=== PATIENT | male | born 1980 | race Caucasian/White ===

== ENCOUNTER 2017-05-07 15:04 | Emergency (ER) | payer MEDICAID | END 2017-05-07 17:01 | disposition home or self-care (01) | LOC: E/R 15:04 | DX: L73.9 Follicular disorder, unspecified (principal); H10.9 Unspecified conjunctivitis | CPT/HCPCS: 99284; Z7502 ==

== ENCOUNTER 2017-08-05 12:00 | Emergency (ER) | payer MEDICAID ==
[2017-08-05] MEDS: SOD CHLORIDE 0.9% 1,000 ML IV (18:17)
[2017-08-05 18:20] LABS: ADD MAN DIFF? NO
[2017-08-05 18:25] LABS: WHITE BLOOD COUNT 5.8 10^3/ul (4.8-10.8)
[2017-08-05 18:25] LABS: BASOPHIL # 0.1 10^3/ul (0.0-0.1); BASOPHILS % 2.3 % (0.0-2.0); EOSINOPHILS # 0.1 10^3/ul (0.0-0.5); HEMATOCRIT 40.3 % (42.0-52.0); HEMOGLOBIN 13.9 g/dl (14.0-18.0); LYMPHOCYTES # 1.5 10^3/ul (0.8-2.9); LYMPHOCYTES % 26.2 % (15.0-51.0); MEAN CORPUSCULAR HEMOGLOBIN 32.8 pg (29.0-33.0); MEAN CORPUSCULAR HGB CONC 34.5 g/dl (32.0-37.0); MEAN PLATELET VOLUME 10.1 fl (7.4-10.4); MONOCYTE # 0.9 10^3/ul (0.3-0.9); MONOCYTES % 15.8 % (0.0-11.0); NEUTROPHIL # 3.1 10^3/ul (1.6-7.5); NEUTROPHILS % 54.5 % (39.0-77.0); PLATELET COUNT 107 10^3/UL (140-415); RED BLOOD COUNT 4.24 10^6/ul (4.70-6.10); RED CELL DISTRIBUTION WIDTH 11.9 % (11.5-14.5)
[2017-08-05 18:52] LABS: ANION GAP 19 (8-16); BLOOD UREA NITROGEN 4 mg/dl (7-20); CALCIUM 9.5 mg/dl (8.4-10.2); CARBON DIOXIDE 32 mmol/L (21-31); CHLORIDE 102 mmol/L (97-110); CREATININE 0.54 mg/dl (0.61-1.24); GLUCOSE 129 mg/dl (70-220); POTASSIUM 3.8 mmol/L (3.5-5.1); SODIUM 149 mmol/L (135-144)
[2017-08-05 19:04] LABS: TROPONIN-I < 0.012 ng/ml (0.00-0.12)
== END 2017-08-05 20:33 | disposition home or self-care (01) ==
LOC: E/R 12:00
DX: G47.09 Other insomnia (principal)
CPT/HCPCS: 36415; 71045; 80048; 84484; 85025; 93005; 99285-25

== ENCOUNTER 2018-01-27 12:13 | Emergency (ER) | payer MEDICAID ==
[2018-01-27 13:17] LABS: ADD MAN DIFF? NO
[2018-01-27 13:19] LABS: BASOPHIL # 0.1 10^3/ul (0.0-0.1); EOSINOPHILS # 0.1 10^3/ul (0.0-0.5); EOSINOPHILS % 1.6 % (0.0-7.0); HEMATOCRIT 39.7 % (42.0-52.0); HEMOGLOBIN 13.4 g/dl (14.0-18.0); LYMPHOCYTES # 1.5 10^3/ul (0.8-2.9); LYMPHOCYTES % 21.4 % (15.0-51.0); MEAN CORPUSCULAR HEMOGLOBIN 33.4 pg (29.0-33.0); MEAN CORPUSCULAR HGB CONC 33.8 g/dl (32.0-37.0); MEAN PLATELET VOLUME 10.6 fl (7.4-10.4); MONOCYTE # 1.1 10^3/ul (0.3-0.9); MONOCYTES % 15.3 % (0.0-11.0); NEUTROPHIL # 4.2 10^3/ul (1.6-7.5); NEUTROPHILS % 59.4 % (39.0-77.0); PLATELET COUNT 100 10^3/UL (140-415); POSITIVE DIFF @See below; RED BLOOD COUNT 4.01 10^6/ul (4.70-6.10); RED CELL DISTRIBUTION WIDTH 11.9 % (11.5-14.5)
[2018-01-27 13:47] LABS: ALANINE AMINOTRANSFERASE 48 IU/L (13-69); ALBUMIN 4.3 g/dl (3.3-4.9); ALBUMIN/GLOBULIN RATIO 1.07; ALKALINE PHOSPHATASE 127 IU/L (42-121); ANION GAP 14 (8-16); ASPARTATE AMINO TRANSFERASE 110 IU/L (15-46); BILIRUBIN,INDIRECT 0.6 mg/dl (0-1.1); BILIRUBIN,TOTAL 0.6 mg/dl (0.2-1.3); BLOOD UREA NITROGEN 4 mg/dl (7-20); CALCIUM 9.1 mg/dl (8.4-10.2); CARBON DIOXIDE 28 mmol/L (21-31); CHLORIDE 105 mmol/L (97-110); CREATININE 0.55 mg/dl (0.61-1.24); GLUCOSE 186 mg/dl (70-220); SODIUM 143 mmol/L (135-144); TOTAL PROTEIN 8.3 g/dl (6.1-8.1)
== END 2018-01-27 14:23 | disposition home or self-care (01) ==
LOC: FTE 12:13
DX: I87.309 Chronic venous hypertension (idiopathic) without complications of unspecified lower extremity (principal); F17.210 Nicotine dependence, cigarettes, uncomplicated
CPT/HCPCS: 36415; 80053; 85025; 99283

== ENCOUNTER 2018-07-17 11:29 | Emergency (ER) | payer MEDICAID | END 2018-07-17 14:41 | disposition home or self-care (01) | LOC: FTE 14:41 | DX: H02.825 Cysts of left lower eyelid (principal); Z87.891 Personal history of nicotine dependence | CPT/HCPCS: 67700; 99282-25 ==

== ENCOUNTER 2018-08-08 20:58 | Emergency (ER) | payer SELFPAY, MEDICAID | END 2018-08-09 02:28 | disposition left against medical advice (07) | LOC: FTE 20:58 | DX: Z53.21 Procedure and treatment not carried out due to patient leaving prior to being seen by health care provider (principal) ==

== ENCOUNTER 2018-08-11 16:43 | Inpatient (IN) | payer MEDICAID ==
[2018-08-11 18:01] LABS: ADD MAN DIFF? NO
[2018-08-11 18:04] LABS: ABNORMAL IP MESSAGE 1; HEMATOCRIT 35.5 % (42.0-52.0); HEMOGLOBIN 12.7 g/dl (14.0-18.0); MEAN CORPUSCULAR HEMOGLOBIN 32.3 pg (29.0-33.0); MEAN CORPUSCULAR HGB CONC 35.8 g/dl (32.0-37.0); MEAN CORPUSCULAR VOLUME 90.3 fl (82.0-101.0); MEAN PLATELET VOLUME 11.2 fl (7.4-10.4); PLATELET COUNT 128 10^3/UL (140-415); POSITIVE DIFF @See below; RED BLOOD COUNT 3.93 10^6/ul (4.70-6.10); RED CELL DISTRIBUTION WIDTH 12.8 % (11.5-14.5)
[2018-08-11 18:04] LABS: WHITE BLOOD COUNT 20.1 10^3/ul (4.8-10.8)
[2018-08-11 18:14] LABS: ADD UMIC YES; UR ASCORBIC ACID NEGATIVE (NEGATIVE); UR BACTERIA MANY /HPF (NONE SEEN); UR BILIRUBIN (Dip) NEGATIVE (NEGATIVE); UR BLOOD (Dip) 3+ mg/dL (NEGATIVE); UR CLARITY SLIGHTLY CLOUDY (CLEAR); UR COLOR AMBER (YELLOW); UR GLUCOSE (Dip) 3+ mg/dL (NEGATIVE); UR KETONES (Dip) NEGATIVE (NEGATIVE); UR LEUKOCYTE ESTERASE (Dip) 3+ Leu/ul (NEGATIVE); UR NITRITE (Dip) NEGATIVE (NEGATIVE); UR NONSQUAMOUS EPITHELIAL CELL 2 /HPF (NONE SEEN); UR RBC 2 /HPF (0-5); UR SPECIFIC GRAVITY (Dip) 1.007 (1.003-1.030); UR TOTAL PROTEIN (Dip) NEGATIVE (NEGATIVE); UR UROBILINOGEN (Dip) 2+ mg/dL (NEGATIVE); UR WBC 124 /HPF (0-5)
[2018-08-11 18:24] LABS: ALANINE AMINOTRANSFERASE 63 IU/L (13-69); ALBUMIN 3.2 g/dl (3.3-4.9); ALBUMIN/GLOBULIN RATIO 0.65; ALKALINE PHOSPHATASE 186 IU/L (42-121); ANION GAP 14 (5-13); ASPARTATE AMINO TRANSFERASE 92 IU/L (15-46); BILIRUBIN,TOTAL 5.2 mg/dl (0.2-1.3); BLOOD UREA NITROGEN 10 mg/dl (7-20); CALCIUM 8.8 mg/dl (8.4-10.2); CARBON DIOXIDE 23 mmol/L (21-31); CHLORIDE 87 mmol/L (97-110); CREATININE 0.89 mg/dl (0.61-1.24); Estimated GFR > 60 mL/min (>60); GLUCOSE 383 mg/dl (70-220); LIPASE 446 U/L (23-300); POTASSIUM 3.5 mmol/L (3.5-5.1); SODIUM 124 mmol/L (135-144); TOTAL PROTEIN 8.1 g/dl (6.1-8.1)
[2018-08-11 19:32] LABS: BAND NEUTROPHILS #M 0.6 10^3/ul (0.0-0.6); BAND NEUTROPHILS % (M) 3 % (0-4); GIANT THROMBO% (M) 1 % (0-0); LYMPHOCYTES #M 1.8 10^3/ul (0.8-2.9); LYMPHOCYTES % (M) 9 % (15-51); METAMYELOCYTES #M 0.2 10^3/ul (0.0-0.0); METAMYELOCYTES %M 1 % (0-0); MONOCYTE #M 3.6 10^3/ul (0.3-0.9); MONOCYTES % (M) 18 % (0-11); PLATELET ESTIMATE DECREASED; SEGMENTED NEUTROPHILS (M) % 69 % (39-77)
[2018-08-11] MEDS ORDERED: SOD CHLORIDE 0.9% 500 ML IV (21:00)
[2018-08-11] MEDS ORDERED: NACL 0.9% 3 ML SYG IV (21:00)
[2018-08-11] MEDS: SOD CHLORIDE 0.9% 1,000 ML IV (21:04)
[2018-08-11] MEDS: CEFTRIAXONE 1 GM/50 ML (PMX) 50 ML IVPB (21:04)
[2018-08-11] MEDS: LORAZEPAM 0.5 MG TAB PO (21:04)
[2018-08-11] MEDS: DOCUSATE SODIUM 100 MG CAP PO (21:04)
[2018-08-11] MEDS ORDERED: SOD CHLORIDE 0.9% 100 ML (21:22)
[2018-08-11] MEDS ORDERED: IOHEXOL 300MG/ML 150 ML BTL (21:22)
[2018-08-11 21:27] LABS: INR 1.45; PROTIME 17.7 Sec (11.9-14.9); PT RATIO 1.4
[2018-08-11 21:28] LABS: PARTIAL THROMBOPLASTIN TIME 37.1 Sec (23.0-35.0)
[2018-08-11 21:34] LABS: AMMONIA 40 umol/l (9-30)
[2018-08-11 22:32] LABS: AMPHETAMINE/METHAMPHETAMINE Negative (NEGATIVE); BARBITURATES Negative (NEGATIVE); BENZODIAZEPINES Negative (NEGATIVE); CANNABINOIDS Positive (NEGATIVE); COCAINE Negative (NEGATIVE); OPIATES Negative (NEGATIVE)
[2018-08-11] MEDS: ONDANSETRON 4 MG INJ IV (22:54)
[2018-08-11] MEDS ORDERED: GLUCAGON 1 MG INJ IM (23:45)
[2018-08-11] MEDS ORDERED: GLUCOSE GEL 15 GRAM TUBE BUCCAL (23:45)
[2018-08-11] MEDS ORDERED: GLUCOSE GEL 15 GRAM TUBE PO ×2 (23:45)
[2018-08-11] MEDS ORDERED: DEXTROSE 50% 50 ML SYRINGE IV ×2 (23:45)
[2018-08-12] MEDS: THIAMINE 100 MG TAB PO ×4 (00:25→21:14)
[2018-08-12] MEDS: LACTULOSE 30ML CUP PO ×4 (00:25→21:14)
[2018-08-12] MEDS: PIPER-TAZO 3.375 GM IV (PMX) 100 ML IVPB ×4 (00:26→18:09)
[2018-08-12] MEDS: INSULIN ASPART [NOVOLOG] 3 ML PEN SC ×6 (01:27→21:00)
[2018-08-12 01:47] LABS: ALANINE AMINOTRANSFERASE 66 IU/L (13-69); ALBUMIN/GLOBULIN RATIO 0.62; ALKALINE PHOSPHATASE 180 IU/L (42-121); ANION GAP 14 (5-13); ASPARTATE AMINO TRANSFERASE 99 IU/L (15-46); BILIRUBIN,INDIRECT 1.9 mg/dl (0-1.1); BILIRUBIN,TOTAL 5.8 mg/dl (0.2-1.3); BLOOD UREA NITROGEN 10 mg/dl (7-20); CALCIUM 8.2 mg/dl (8.4-10.2); CARBON DIOXIDE 25 mmol/L (21-31); CHLORIDE 89 mmol/L (97-110); CREATININE 0.83 mg/dl (0.61-1.24); Estimated GFR > 60 mL/min (>60); GLUCOSE 236 mg/dl (70-220); SODIUM 128 mmol/L (135-144); TOTAL PROTEIN 7.8 g/dl (6.1-8.1)
[2018-08-12] MEDS: ACCU-CHEK XX (02:00)
[2018-08-12] MEDS: ACETAMINOPHEN 325 MG TAB PO (02:40)
[2018-08-12] MEDS: POTASSIUM CHLORIDE (SR) 20 MEQ TAB PO (03:16)
[2018-08-12 04:00] LABS: LACTIC ACID 1.9 mmol/L (0.5-2.0)
[2018-08-12] MEDS: 1/2 NS + KCL 20 MEQ 1,000 ML IV ×2 (05:35→09:45)
[2018-08-12 06:02] LABS: HAAIG REFLEX REFLEX FILED
[2018-08-12 06:10] LABS: WHITE BLOOD COUNT 24.4 10^3/ul (4.8-10.8)
[2018-08-12 06:10] LABS: ABNORMAL IP MESSAGE 1; HEMATOCRIT 30.8 % (42.0-52.0); HEMOGLOBIN 10.8 g/dl (14.0-18.0); MEAN CORPUSCULAR HEMOGLOBIN 31.9 pg (29.0-33.0); MEAN CORPUSCULAR HGB CONC 35.1 g/dl (32.0-37.0); MEAN CORPUSCULAR VOLUME 90.9 fl (82.0-101.0); MEAN PLATELET VOLUME 11.3 fl (7.4-10.4); PLATELET COUNT 123 10^3/UL (140-415); POSITIVE DIFF @See below; RED BLOOD COUNT 3.39 10^6/ul (4.70-6.10); RED CELL DISTRIBUTION WIDTH 13.1 % (11.5-14.5)
[2018-08-12 06:19] LABS: ADD MAN DIFF? YES
[2018-08-12 06:21] LABS: HEMOGLOBIN A1C 6.3 % (0-5.9)
[2018-08-12 06:27] LABS: CHOL/HDL RATIO 7.3 RATIO; CHOLESTEROL 73 mg/dl (100-200); HDL CHOLESTEROL 10 mg/dl (28-63); LDL CHOLESTEROL,CALCULATED 41 mg/dl; TRIGLYCERIDES 112 mg/dl (0-149)
[2018-08-12 06:27] LABS: MAGNESIUM 1.7 mg/dl (1.7-2.5)
[2018-08-12] MEDS: METHYLPREDNISOLONE 40 MG INJ IV (06:28)
[2018-08-12 06:36] LABS: ALANINE AMINOTRANSFERASE 69 IU/L (13-69); ALBUMIN 2.8 g/dl (3.3-4.9); ALBUMIN/GLOBULIN RATIO 0.65; ALKALINE PHOSPHATASE 168 IU/L (42-121); ANION GAP 12 (5-13); ASPARTATE AMINO TRANSFERASE 111 IU/L (15-46); BILIRUBIN,TOTAL 6.5 mg/dl (0.2-1.3); BLOOD UREA NITROGEN 11 mg/dl (7-20); CARBON DIOXIDE 26 mmol/L (21-31); CHLORIDE 91 mmol/L (97-110); CREATININE 0.92 mg/dl (0.61-1.24); Estimated GFR > 60 mL/min (>60); GLUCOSE 196 mg/dl (70-220); POTASSIUM 3.3 mmol/L (3.5-5.1); PROTIME 19.1 Sec (11.9-14.9); PT RATIO 1.5; SODIUM 129 mmol/L (135-144); TOTAL PROTEIN 7.1 g/dl (6.1-8.1)
[2018-08-12 06:53] LABS: ACETAMINOPHEN < 10.0 ug/ml (10.0-30.0)
[2018-08-12 06:53] LABS: SALICYLATE < 1.0 mg/dl (5.0-30.0)
[2018-08-12 06:59] LABS: HEPATITIS B SURFACE ANTIGEN NEGATIVE (NEGATIVE); THYROID STIMULATING HORMONE 0.748 MIU/L (0.465-4.680)
[2018-08-12] MEDS: LORAZEPAM 2 MG INJ IV ×6 (07:14→21:50)
[2018-08-12 07:16] LABS: HEPATITIS B CORE ANTIBODY NEGATIVE (NEGATIVE); HEPATITIS C VIRAL ANTIBODY NEGATIVE (NEGATIVE)
[2018-08-12 07:17] LABS: HEPATITIS B SURFACE ANTIBODY NEGATIVE (NEGATIVE)
[2018-08-12] MEDS: BISACODYL (EC) 5 MG TAB PO ×2 (08:16→12:13)
[2018-08-12] MEDS: FOLIC ACID 1 MG TAB PO ×2 (08:16→12:16)
[2018-08-12] MEDS: DOCUSATE SODIUM 100 MG CAP PO ×3 (08:16→21:14)
[2018-08-12] MEDS: MULTIVITAMINS THERAPEUTIC TAB PO ×2 (08:16→12:16)
[2018-08-12 09:18] LABS: ALANINE AMINOTRANSFERASE 69 IU/L (13-69); ALBUMIN 2.7 g/dl (3.3-4.9); ALKALINE PHOSPHATASE 160 IU/L (42-121); ANION GAP 8 (5-13); ASPARTATE AMINO TRANSFERASE 103 IU/L (15-46); BILIRUBIN,INDIRECT 1.9 mg/dl (0-1.1); BILIRUBIN,TOTAL 6.7 mg/dl (0.2-1.3); BLOOD UREA NITROGEN 13 mg/dl (7-20); CALCIUM 8.4 mg/dl (8.4-10.2); CARBON DIOXIDE 27 mmol/L (21-31); CHLORIDE 97 mmol/L (97-110); CREATININE 0.92 mg/dl (0.61-1.24); Estimated GFR > 60 mL/min (>60); GLUCOSE 223 mg/dl (70-220); POTASSIUM 3.8 mmol/L (3.5-5.1); SODIUM 132 mmol/L (135-144); TOTAL PROTEIN 7.2 g/dl (6.1-8.1)
[2018-08-12 09:43] LABS: ANISOCYTOSIS 1+ (0-0); BAND NEUTROPHILS #M 0.7 10^3/ul (0.0-0.6); BAND NEUTROPHILS % (M) 3 % (0-4); GIANT THROMBO% (M) 5 % (0-0); LYMPHOCYTES #M 0.4 10^3/ul (0.8-2.9); LYMPHOCYTES % (M) 2 % (15-51); METAMYELOCYTES #M 0.2 10^3/ul (0.0-0.0); METAMYELOCYTES %M 1 % (0-0); MONOCYTE #M 2.6 10^3/ul (0.3-0.9); MONOCYTES % (M) 11 % (0-11); MYELOCYTES #M 0.2 10^3/ul (0.0-0.0); MYELOCYTES % (M) 1 % (0-0); PLATELET ESTIMATE DECREASED; POLYCHROMASIA 2+ (0-0); PROMYELOCYTES #M 0.7 10^3/ul (0-0); PROMYELOCYTES % (M) 3 % (0-0); REACTIVE LYMPHOCYTES #M 0.2 10^3/ul (0.0-0.0); REACTIVE LYMPHOCYTES% (M) 1 % (0-0); SEG NEUT #M 19.2 10^3/ul (1.6-7.5); SEGMENTED NEUTROPHILS (M) % 78 % (39-77); SMUDGE%M 8 % (0-0); TOXIC GRANULATION 1+ (0-0)
[2018-08-12 12:22] LABS: ALANINE AMINOTRANSFERASE 70 IU/L (13-69); ALBUMIN/GLOBULIN RATIO 0.63; ALKALINE PHOSPHATASE 173 IU/L (42-121); ANION GAP 14 (5-13); ASPARTATE AMINO TRANSFERASE 109 IU/L (15-46); BILIRUBIN,TOTAL 7.1 mg/dl (0.2-1.3); BLOOD UREA NITROGEN 13 mg/dl (7-20); CALCIUM 8.3 mg/dl (8.4-10.2); CARBON DIOXIDE 24 mmol/L (21-31); CHLORIDE 96 mmol/L (97-110); CREATININE 0.89 mg/dl (0.61-1.24); Estimated GFR > 60 mL/min (>60); GLUCOSE 279 mg/dl (70-220); POTASSIUM 3.9 mmol/L (3.5-5.1); SODIUM 134 mmol/L (135-144); TOTAL PROTEIN 7.7 g/dl (6.1-8.1)
[2018-08-12] MEDS: DEXTROSE 5% 1,000 ML IV ×2 (14:13→23:00)
[2018-08-12 17:05] LABS: ALANINE AMINOTRANSFERASE 65 IU/L (13-69); ALBUMIN 3.1 g/dl (3.3-4.9); ALBUMIN/GLOBULIN RATIO 0.64; ALKALINE PHOSPHATASE 189 IU/L (42-121); ANION GAP 11 (5-13); ASPARTATE AMINO TRANSFERASE 97 IU/L (15-46); BILIRUBIN,INDIRECT 1.9 mg/dl (0-1.1); BILIRUBIN,TOTAL 6.7 mg/dl (0.2-1.3); BLOOD UREA NITROGEN 15 mg/dl (7-20); CALCIUM 8.8 mg/dl (8.4-10.2); CARBON DIOXIDE 26 mmol/L (21-31); CHLORIDE 98 mmol/L (97-110); CREATININE 0.92 mg/dl (0.61-1.24); Estimated GFR > 60 mL/min (>60); GLUCOSE 330 mg/dl (70-220); SODIUM 135 mmol/L (135-144); TOTAL PROTEIN 7.9 g/dl (6.1-8.1)
[2018-08-12 20:41] LABS: ALANINE AMINOTRANSFERASE 59 IU/L (13-69); ALBUMIN/GLOBULIN RATIO 0.63; ALKALINE PHOSPHATASE 174 IU/L (42-121); ANION GAP 10 (5-13); ASPARTATE AMINO TRANSFERASE 87 IU/L (15-46); BILIRUBIN,INDIRECT 1.7 mg/dl (0-1.1); BILIRUBIN,TOTAL 5.7 mg/dl (0.2-1.3); BLOOD UREA NITROGEN 16 mg/dl (7-20); CALCIUM 8.7 mg/dl (8.4-10.2); CARBON DIOXIDE 25 mmol/L (21-31); CHLORIDE 99 mmol/L (97-110); CREATININE 0.92 mg/dl (0.61-1.24); Estimated GFR > 60 mL/min (>60); GLUCOSE 289 mg/dl (70-220); POTASSIUM 3.4 mmol/L (3.5-5.1); SODIUM 134 mmol/L (135-144); TOTAL PROTEIN 7.7 g/dl (6.1-8.1)
[2018-08-12] MEDS ORDERED: CEFTRIAXONE 1 GM/50 ML (PMX) 50 ML IVPB (21:00)
[2018-08-12] MEDS: CHLORDIAZEPOXIDE 25 MG CAP PO (21:14)
[2018-08-12] MEDS: HALOPERIDOL 5 MG INJ IM (21:51)
[2018-08-12] MEDS ORDERED: HALOPERIDOL 5 MG INJ IM (22:00)
[2018-08-13] MEDS: PIPER-TAZO 3.375 GM IV (PMX) 100 ML IVPB ×4 (00:24→17:45)
[2018-08-13] MEDS: ACCU-CHEK XX (02:00)
[2018-08-13] MEDS ORDERED: ACCU-CHEK XX (02:00)
[2018-08-13] MEDS: DEXTROSE 5% 1,000 ML IV ×2 (02:41→08:10)
[2018-08-13] MEDS: CHLORDIAZEPOXIDE 25 MG CAP PO ×3 (05:34→21:32)
[2018-08-13] MEDS: LACTULOSE 30ML CUP PO ×3 (05:34→21:32)
[2018-08-13 06:48] LABS: ADD UMIC YES; UR ASCORBIC ACID NEGATIVE (NEGATIVE); UR BILIRUBIN (Dip) NEGATIVE (NEGATIVE); UR BLOOD (Dip) 2+ mg/dL (NEGATIVE); UR CLARITY CLEAR (CLEAR); UR COLOR AMBER (YELLOW); UR GLUCOSE (Dip) 3+ mg/dL (NEGATIVE); UR KETONES (Dip) NEGATIVE (NEGATIVE); UR LEUKOCYTE ESTERASE (Dip) 1+ Leu/ul (NEGATIVE); UR NITRITE (Dip) NEGATIVE (NEGATIVE); UR RBC 3 /HPF (0-5); UR SPECIFIC GRAVITY (Dip) 1.011 (1.003-1.030); UR TOTAL PROTEIN (Dip) NEGATIVE (NEGATIVE); UR UROBILINOGEN (Dip) 2+ mg/dL (NEGATIVE); UR WBC 40 /HPF (0-5)
[2018-08-13 07:20] LABS: SODIUM,URINE RANDOM 32 mmol/L (30-90)
[2018-08-13 07:34] LABS: CREATININE,URINE RANDOM 41.57 mg/dl (20-370)
[2018-08-13 07:59] LABS: OSMOLALITY,URINE 332 mOsm/kg (250-1200)
[2018-08-13] MEDS: INSULIN ASPART [NOVOLOG] 3 ML PEN SC ×4 (08:08→21:00)
[2018-08-13] MEDS: MULTIVITAMINS THERAPEUTIC TAB PO (08:09)
[2018-08-13] MEDS: METHYLPREDNISOLONE 40 MG INJ IV (08:09)
[2018-08-13] MEDS: BISACODYL (EC) 5 MG TAB PO (08:09)
[2018-08-13] MEDS: FOLIC ACID 1 MG TAB PO (08:09)
[2018-08-13] MEDS: DOCUSATE SODIUM 100 MG CAP PO (08:09)
[2018-08-13] MEDS: THIAMINE 100 MG TAB PO ×2 (08:10→21:33)
[2018-08-13 09:52] LABS: ADD MAN DIFF? NO
[2018-08-13 09:57] LABS: ABNORMAL IP MESSAGE 1; BASOPHIL # 0.1 10^3/ul (0.0-0.1); BASOPHILS % 0.4 % (0.0-2.0); EOSINOPHILS # 0.1 10^3/ul (0.0-0.5); EOSINOPHILS % 0.3 % (0.0-7.0); HEMATOCRIT 32.5 % (42.0-52.0); HEMOGLOBIN 11.4 g/dl (14.0-18.0); LYMPHOCYTES # 1.3 10^3/ul (0.8-2.9); LYMPHOCYTES % 5.9 % (15.0-51.0); MEAN CORPUSCULAR HEMOGLOBIN 32.5 pg (29.0-33.0); MEAN CORPUSCULAR HGB CONC 35.1 g/dl (32.0-37.0); MEAN CORPUSCULAR VOLUME 92.6 fl (82.0-101.0); MEAN PLATELET VOLUME 10.9 fl (7.4-10.4); MONOCYTE # 2.4 10^3/ul (0.3-0.9); MONOCYTES % 10.8 % (0.0-11.0); NEUTROPHIL # 17.5 10^3/ul (1.6-7.5); NUCLEATED RED BLOOD CELLS% 0.1 /100WBC (0.0-0.0); PLATELET COUNT 161 10^3/UL (140-415); POSITIVE DIFF @See below; RED BLOOD COUNT 3.51 10^6/ul (4.70-6.10); RED CELL DISTRIBUTION WIDTH 13.6 % (11.5-14.5)
[2018-08-13 09:57] LABS: WHITE BLOOD COUNT 21.9 10^3/ul (4.8-10.8)
[2018-08-13 10:18] LABS: PROTIME 18.2 Sec (11.9-14.9); PT RATIO 1.4
[2018-08-13] MEDS: LORAZEPAM 2 MG INJ IV ×3 (10:19→23:04)
[2018-08-13 10:20] LABS: ALANINE AMINOTRANSFERASE 66 IU/L (13-69); ALBUMIN 2.6 g/dl (3.3-4.9); ALKALINE PHOSPHATASE 154 IU/L (42-121); ASPARTATE AMINO TRANSFERASE 68 IU/L (15-46); BILIRUBIN,INDIRECT 1.7 mg/dl (0-1.1); BILIRUBIN,TOTAL 3.8 mg/dl (0.2-1.3); TOTAL PROTEIN 6.8 g/dl (6.1-8.1)
[2018-08-13 10:21] LABS: LACTIC ACID 1.8 mmol/L (0.5-2.0)
[2018-08-13 10:23] LABS: ANION GAP 9 (5-13); BLOOD UREA NITROGEN 18 mg/dl (7-20); CALCIUM 8.8 mg/dl (8.4-10.2); CARBON DIOXIDE 26 mmol/L (21-31); CHLORIDE 101 mmol/L (97-110); CREATININE 0.92 mg/dl (0.61-1.24); Estimated GFR > 60 mL/min (>60); GLUCOSE 194 mg/dl (70-220); MAGNESIUM 2.3 mg/dl (1.7-2.5); PHOSPHORUS 3.4 mg/dl (2.5-4.9); POTASSIUM 3.2 mmol/L (3.5-5.1); SODIUM 136 mmol/L (135-144)
[2018-08-13] MEDS: INSULIN GLARGINE [LANTus] (100 UNITS/ML) SYG SC (12:50)
[2018-08-13] MEDS: POTASSIUM CHLORIDE (SR) 20 MEQ TAB PO (15:08)
[2018-08-13] MEDS: HALOPERIDOL 5 MG INJ IM (23:06)
[2018-08-14] MEDS: LORAZEPAM 2 MG INJ IV ×4 (00:29→21:38)
[2018-08-14] MEDS: PIPER-TAZO 3.375 GM IV (PMX) 100 ML IVPB ×5 (00:29→23:10)
[2018-08-14 05:00] LABS: ADD MAN DIFF? NO
[2018-08-14 05:03] LABS: ABNORMAL IP MESSAGE 1; BASOPHIL # 0.1 10^3/ul (0.0-0.1); BASOPHILS % 0.8 % (0.0-2.0); EOSINOPHILS # 0.2 10^3/ul (0.0-0.5); EOSINOPHILS % 1.2 % (0.0-7.0); HEMATOCRIT 33.3 % (42.0-52.0); HEMOGLOBIN 11.3 g/dl (14.0-18.0); LYMPHOCYTES # 1.8 10^3/ul (0.8-2.9); LYMPHOCYTES % 11.1 % (15.0-51.0); MEAN CORPUSCULAR HEMOGLOBIN 31.8 pg (29.0-33.0); MEAN CORPUSCULAR HGB CONC 33.9 g/dl (32.0-37.0); MEAN CORPUSCULAR VOLUME 93.8 fl (82.0-101.0); MEAN PLATELET VOLUME 10.5 fl (7.4-10.4); MONOCYTE # 1.9 10^3/ul (0.3-0.9); MONOCYTES % 11.8 % (0.0-11.0); NEUTROPHIL # 11.2 10^3/ul (1.6-7.5); PLATELET COUNT 145 10^3/UL (140-415); POSITIVE DIFF @See below; RED BLOOD COUNT 3.55 10^6/ul (4.70-6.10); RED CELL DISTRIBUTION WIDTH 14.1 % (11.5-14.5)
[2018-08-14 05:03] LABS: WHITE BLOOD COUNT 15.8 10^3/ul (4.8-10.8)
[2018-08-14 05:21] LABS: INR 1.38; PROTIME 17.1 Sec (11.9-14.9); PT RATIO 1.3
[2018-08-14 05:26] LABS: HEMOGLOBIN A1C 6.3 % (0-5.9)
[2018-08-14 05:39] LABS: LIPASE 468 U/L (23-300)
[2018-08-14 05:39] LABS: AMYLASE 168 U/L (11-123)
[2018-08-14] MEDS: CHLORDIAZEPOXIDE 25 MG CAP PO ×3 (05:58→23:06)
[2018-08-14] MEDS: LACTULOSE 30ML CUP PO ×3 (05:58→21:38)
[2018-08-14] MEDS: THIAMINE 100 MG TAB PO ×2 (08:16→20:21)
[2018-08-14] MEDS: FOLIC ACID 1 MG TAB PO (08:16)
[2018-08-14] MEDS: MULTIVITAMINS THERAPEUTIC TAB PO (08:16)
[2018-08-14] MEDS: INSULIN ASPART [NOVOLOG] 3 ML PEN SC ×6 (08:18→20:24)
[2018-08-14] MEDS: INSULIN GLARGINE [LANTus] (100 UNITS/ML) SYG SC (08:18)
[2018-08-14 08:30] LABS: ALANINE AMINOTRANSFERASE 90 IU/L (13-69); ALBUMIN 2.8 g/dl (3.3-4.9); ALBUMIN/GLOBULIN RATIO 0.63; ALKALINE PHOSPHATASE 178 IU/L (42-121); ANION GAP 11 (5-13); ASPARTATE AMINO TRANSFERASE 140 IU/L (15-46); BILIRUBIN,INDIRECT 1.8 mg/dl (0-1.1); BLOOD UREA NITROGEN 22 mg/dl (7-20); CALCIUM 8.9 mg/dl (8.4-10.2); CARBON DIOXIDE 24 mmol/L (21-31); CHLORIDE 104 mmol/L (97-110); CREATININE 1.17 mg/dl (0.61-1.24); Estimated GFR > 60 mL/min (>60); GLUCOSE 102 mg/dl (70-220); POTASSIUM 3.5 mmol/L (3.5-5.1); SODIUM 139 mmol/L (135-144); TOTAL PROTEIN 7.2 g/dl (6.1-8.1)
[2018-08-14] MEDS ORDERED: predniSOLONE (3 MG/ML) CUP PO (09:00)
[2018-08-14] MEDS: predniSOLONE (3 MG/ML) CUP PO (12:47)
[2018-08-14] MEDS: SOD CHLORIDE 0.9% 1,000 ML IV (13:00)
[2018-08-14 16:24] LABS: CREATININE,URINE RANDOM 37.47 mg/dl (20-370); SODIUM,URINE RANDOM 61 mmol/L (30-90)
[2018-08-14] MEDS: ACCU-CHEK XX (18:00)
[2018-08-15] MEDS: LORAZEPAM 2 MG INJ IV ×2 (01:53→08:29)
[2018-08-15 05:09] LABS: ADD MAN DIFF? NO
[2018-08-15 05:21] LABS: WHITE BLOOD COUNT 19.6 10^3/ul (4.8-10.8)
[2018-08-15 05:21] LABS: ABNORMAL IP MESSAGE 1; BASOPHIL # 0.1 10^3/ul (0.0-0.1); BASOPHILS % 0.3 % (0.0-2.0); EOSINOPHILS # 0.1 10^3/ul (0.0-0.5); EOSINOPHILS % 0.4 % (0.0-7.0); HEMATOCRIT 32.3 % (42.0-52.0); LYMPHOCYTES # 1.5 10^3/ul (0.8-2.9); LYMPHOCYTES % 7.8 % (15.0-51.0); MEAN CORPUSCULAR HEMOGLOBIN 31.5 pg (29.0-33.0); MEAN CORPUSCULAR HGB CONC 34.1 g/dl (32.0-37.0); MEAN CORPUSCULAR VOLUME 92.6 fl (82.0-101.0); MEAN PLATELET VOLUME 10.2 fl (7.4-10.4); MONOCYTE # 1.5 10^3/ul (0.3-0.9); MONOCYTES % 7.7 % (0.0-11.0); NEUTROPHIL # 15.5 10^3/ul (1.6-7.5); NEUTROPHILS % 79.1 % (39.0-77.0); PLATELET COUNT 163 10^3/UL (140-415); POSITIVE DIFF @See below; RED BLOOD COUNT 3.49 10^6/ul (4.70-6.10); RED CELL DISTRIBUTION WIDTH 14.1 % (11.5-14.5)
[2018-08-15 05:39] LABS: INR 1.35; PROTIME 16.8 Sec (11.9-14.9); PT RATIO 1.3
[2018-08-15] MEDS: LACTULOSE 30ML CUP PO ×3 (05:41→21:08)
[2018-08-15] MEDS: PIPER-TAZO 3.375 GM IV (PMX) 100 ML IVPB ×4 (05:41→23:25)
[2018-08-15 05:57] LABS: ALANINE AMINOTRANSFERASE 108 IU/L (13-69); ALBUMIN 2.9 g/dl (3.3-4.9); ALBUMIN/GLOBULIN RATIO 0.61; ALKALINE PHOSPHATASE 219 IU/L (42-121); ANION GAP 9 (5-13); ASPARTATE AMINO TRANSFERASE 132 IU/L (15-46); BILIRUBIN,INDIRECT 1.7 mg/dl (0-1.1); BILIRUBIN,TOTAL 2.2 mg/dl (0.2-1.3); BLOOD UREA NITROGEN 17 mg/dl (7-20); CALCIUM 9.1 mg/dl (8.4-10.2); CARBON DIOXIDE 26 mmol/L (21-31); CHLORIDE 105 mmol/L (97-110); CREATININE 1.09 mg/dl (0.61-1.24); Estimated GFR > 60 mL/min (>60); GLUCOSE 166 mg/dl (70-220); POTASSIUM 3.5 mmol/L (3.5-5.1); SODIUM 140 mmol/L (135-144); TOTAL PROTEIN 7.6 g/dl (6.1-8.1)
[2018-08-15] MEDS: INSULIN ASPART [NOVOLOG] 3 ML PEN SC ×8 (08:00→21:36)
[2018-08-15] MEDS: MULTIVITAMINS THERAPEUTIC TAB PO (08:22)
[2018-08-15] MEDS: THIAMINE 100 MG TAB PO ×2 (08:22→21:08)
[2018-08-15] MEDS: FOLIC ACID 1 MG TAB PO (08:22)
[2018-08-15] MEDS: INSULIN GLARGINE [LANTus] (100 UNITS/ML) SYG SC (08:33)
[2018-08-15] MEDS: CHLORDIAZEPOXIDE 25 MG CAP PO (08:51)
[2018-08-15] MEDS: predniSOLONE (3 MG/ML) CUP PO (10:10)
[2018-08-15] MEDS: ACCU-CHEK XX (23:26)
[2018-08-16] MEDS: LACTULOSE 30ML CUP PO ×3 (05:37→21:22)
[2018-08-16] MEDS: PIPER-TAZO 3.375 GM IV (PMX) 100 ML IVPB (05:37)
[2018-08-16 05:38] LABS: INR 1.42; PROTIME 17.5 Sec (11.9-14.9); PT RATIO 1.4
[2018-08-16 05:43] LABS: ALANINE AMINOTRANSFERASE 119 IU/L (13-69); ALBUMIN/GLOBULIN RATIO 0.71; ALKALINE PHOSPHATASE 205 IU/L (42-121); ANION GAP 9 (5-13); ASPARTATE AMINO TRANSFERASE 131 IU/L (15-46); BILIRUBIN,INDIRECT 1.6 mg/dl (0-1.1); BILIRUBIN,TOTAL 1.6 mg/dl (0.2-1.3); BLOOD UREA NITROGEN 18 mg/dl (7-20); CARBON DIOXIDE 28 mmol/L (21-31); CHLORIDE 104 mmol/L (97-110); CREATININE 1.19 mg/dl (0.61-1.24); Estimated GFR > 60 mL/min (>60); GLUCOSE 103 mg/dl (70-220); POTASSIUM 4.4 mmol/L (3.5-5.1); SODIUM 141 mmol/L (135-144); TOTAL PROTEIN 7.2 g/dl (6.1-8.1)
[2018-08-16] MEDS: INSULIN ASPART [NOVOLOG] 3 ML PEN SC ×6 (08:00→21:25)
[2018-08-16] MEDS: THIAMINE 100 MG TAB PO ×2 (08:26→21:22)
[2018-08-16] MEDS: FOLIC ACID 1 MG TAB PO (08:26)
[2018-08-16] MEDS: MULTIVITAMINS THERAPEUTIC TAB PO (08:26)
[2018-08-16] MEDS: predniSOLONE (3 MG/ML) CUP PO (08:27)
[2018-08-16] MEDS: INSULIN GLARGINE [LANTus] (100 UNITS/ML) SYG SC (08:28)
[2018-08-16 12:14] LABS: INR 1.34; PROTIME 16.7 Sec (11.9-14.9); PT RATIO 1.3
[2018-08-16 12:16] LABS: ALANINE AMINOTRANSFERASE 121 IU/L (13-69); ALBUMIN 2.8 g/dl (3.3-4.9); ALBUMIN/GLOBULIN RATIO 0.62; ALKALINE PHOSPHATASE 209 IU/L (42-121); ANION GAP 9 (5-13); ASPARTATE AMINO TRANSFERASE 132 IU/L (15-46); BILIRUBIN,INDIRECT 1.6 mg/dl (0-1.1); BILIRUBIN,TOTAL 1.7 mg/dl (0.2-1.3); BLOOD UREA NITROGEN 19 mg/dl (7-20); CALCIUM 9.3 mg/dl (8.4-10.2); CARBON DIOXIDE 25 mmol/L (21-31); CHLORIDE 105 mmol/L (97-110); CREATININE 1.22 mg/dl (0.61-1.24); Estimated GFR > 60 mL/min (>60); GLUCOSE 257 mg/dl (70-220); LIPASE 439 U/L (23-300); POTASSIUM 3.5 mmol/L (3.5-5.1); SODIUM 139 mmol/L (135-144); TOTAL PROTEIN 7.3 g/dl (6.1-8.1)
[2018-08-16] MEDS: CEFTRIAXONE 1 GM/50 ML (PMX) 50 ML IVPB (12:30)
[2018-08-16 15:01] LABS: CREATININE, RANDOM URINE 40 mg/dL (20-320); MICROALBUMIN 1.8 mg/dL; MICROALBUMIN/CREATININE RATIO 45 (<30)
[2018-08-16] MEDS: HALOPERIDOL 5 MG INJ IM ×2 (19:39→19:58)
[2018-08-16] MEDS: LORAZEPAM 2 MG INJ IV (19:58)
[2018-08-17] MEDS: LACTULOSE 30ML CUP PO ×3 (06:35→21:12)
[2018-08-17] MEDS: INSULIN ASPART [NOVOLOG] 3 ML PEN SC ×4 (07:58→21:00)
[2018-08-17] MEDS: FOLIC ACID 1 MG TAB PO (08:13)
[2018-08-17] MEDS: MULTIVITAMINS THERAPEUTIC TAB PO (08:13)
[2018-08-17] MEDS: THIAMINE 100 MG TAB PO ×2 (08:13→21:12)
[2018-08-17] MEDS: INSULIN GLARGINE [LANTus] (100 UNITS/ML) SYG SC (10:20)
[2018-08-17] MEDS: CEFTRIAXONE 1 GM/50 ML (PMX) 50 ML IVPB (11:24)
[2018-08-18] MEDS: LACTULOSE 30ML CUP PO ×2 (06:17→13:50)
[2018-08-18 06:20] LABS: ALANINE AMINOTRANSFERASE 177 IU/L (13-69); ALBUMIN 2.7 g/dl (3.3-4.9); ALBUMIN/GLOBULIN RATIO 0.69; ALKALINE PHOSPHATASE 201 IU/L (42-121); ANION GAP 7 (5-13); ASPARTATE AMINO TRANSFERASE 181 IU/L (15-46); BILIRUBIN,INDIRECT 1.2 mg/dl (0-1.1); BILIRUBIN,TOTAL 1.2 mg/dl (0.2-1.3); BLOOD UREA NITROGEN 19 mg/dl (7-20); CALCIUM 8.4 mg/dl (8.4-10.2); CARBON DIOXIDE 26 mmol/L (21-31); CHLORIDE 105 mmol/L (97-110); CREATININE 1.17 mg/dl (0.61-1.24); Estimated GFR > 60 mL/min (>60); GLUCOSE 110 mg/dl (70-220); POTASSIUM 3.3 mmol/L (3.5-5.1); SODIUM 138 mmol/L (135-144); TOTAL PROTEIN 6.6 g/dl (6.1-8.1)
[2018-08-18] MEDS: FOLIC ACID 1 MG TAB PO (08:11)
[2018-08-18] MEDS: MULTIVITAMINS THERAPEUTIC TAB PO (08:11)
[2018-08-18] MEDS: THIAMINE 100 MG TAB PO (08:12)
[2018-08-18] MEDS: INSULIN ASPART [NOVOLOG] 3 ML PEN SC ×2 (08:14→12:52)
[2018-08-18] MEDS: INSULIN GLARGINE [LANTus] (100 UNITS/ML) SYG SC (08:15)
[2018-08-18] MEDS: CEFTRIAXONE 1 GM/50 ML (PMX) 50 ML IVPB (11:39)
[2018-08-18] MEDS: POTASSIUM CHLORIDE (SR) 20 MEQ TAB PO (14:58)
== END 2018-08-18 15:35 | disposition home or self-care (01) | DRG 871 ==
LOC: 2NE 22:07 → E/R 16:43 → 2NE 20:51
DX: A41.51 Sepsis due to Escherichia coli [E. coli] (principal); K85.90 Acute pancreatitis without necrosis or infection, unspecified; N39.0 Urinary tract infection, site not specified; E87.1 Hypo-osmolality and hyponatremia; F10.239 Alcohol dependence with withdrawal, unspecified; K76.6 Portal hypertension; N17.9 Acute kidney failure, unspecified; K70.10 Alcoholic hepatitis without ascites; R73.9 Hyperglycemia, unspecified; Z59.0 Homelessness; K31.89 Other diseases of stomach and duodenum; K76.0 Fatty (change of) liver, not elsewhere classified; N40.0 Benign prostatic hyperplasia without lower urinary tract symptoms; E87.6 Hypokalemia; K70.30 Alcoholic cirrhosis of liver without ascites; F17.200 Nicotine dependence, unspecified, uncomplicated; F12.90 Cannabis use, unspecified, uncomplicated
CPT/HCPCS: 36415; 71045; 74177; 74181; 76705; 80048; 80053; 80061; 80076; 80307; 81001; 81003; 82043; 82140; 82150; 82306; 82962; 83036; 83605; 83690; 83735; 83935; 84100; 84155; 84300; 84443; 85025; 85610; 85730; 86704; 86706; 86708; 86709; 86803; 87040-91; 87086; 87340; 97110; 97116; 97161; 97530; 99285-25

== ENCOUNTER 2018-10-06 16:28 | Inpatient (IN) | payer MEDICAID ==
[2018-10-06 18:05] LABS: WHITE BLOOD COUNT 26.3 10^3/ul (4.8-10.8)
[2018-10-06 18:05] LABS: ABNORMAL IP MESSAGE 1; HEMATOCRIT 31.8 % (42.0-52.0); HEMOGLOBIN 11.3 g/dl (14.0-18.0); MEAN CORPUSCULAR HEMOGLOBIN 30.9 pg (29.0-33.0); MEAN CORPUSCULAR HGB CONC 35.5 g/dl (32.0-37.0); MEAN CORPUSCULAR VOLUME 86.9 fl (82.0-101.0); MEAN PLATELET VOLUME 12.6 fl (7.4-10.4); PLATELET COUNT 127 10^3/UL (140-415); POSITIVE DIFF @See below; RED BLOOD COUNT 3.66 10^6/ul (4.70-6.10); RED CELL DISTRIBUTION WIDTH 13.5 % (11.5-14.5)
[2018-10-06 18:08] LABS: ADD MAN DIFF? YES; PATH REVIEW? YES
[2018-10-06] MEDS: SODIUM CHLORIDE 0.9% 1L BAG IV* (18:13)
[2018-10-06] MEDS: PIPER-TAZO 3.375 GM IV (PMX) 100 ML IVPB (18:13)
[2018-10-06 18:22] LABS: ALANINE AMINOTRANSFERASE 20 IU/L (13-69); ALBUMIN 2.7 g/dl (3.3-4.9); ALBUMIN/GLOBULIN RATIO 0.62; ALKALINE PHOSPHATASE 196 IU/L (42-121); ANION GAP 21 (5-13); ASPARTATE AMINO TRANSFERASE 22 IU/L (15-46); BILIRUBIN,INDIRECT 1.1 mg/dl (0-1.1); BILIRUBIN,TOTAL 1.4 mg/dl (0.2-1.3); BLOOD UREA NITROGEN 41 mg/dl (7-20); CALCIUM 9.5 mg/dl (8.4-10.2); CARBON DIOXIDE 20 mmol/L (21-31); CHLORIDE 77 mmol/L (97-110); CREATININE 2.22 mg/dl (0.61-1.24); Estimated GFR 33 mL/min (>60)
[2018-10-06 18:24] LABS: INR 1.45; PROTIME 17.7 Sec (11.9-14.9); PT RATIO 1.4
[2018-10-06 18:25] LABS: PARTIAL THROMBOPLASTIN TIME 37.1 Sec (23.0-35.0)
[2018-10-06 18:27] LABS: AMMONIA 19 umol/l (9-30)
[2018-10-06 18:33] LABS: ADD UMIC YES; TROPONIN-I < 0.012 ng/ml (0.000-0.120); UR ASCORBIC ACID NEGATIVE (NEGATIVE); UR BACTERIA FEW /HPF (NONE SEEN); UR BILIRUBIN (Dip) NEGATIVE (NEGATIVE); UR BLOOD (Dip) 1+ mg/dL (NEGATIVE); UR CLARITY CLEAR (CLEAR); UR COLOR YELLOW (YELLOW); UR GLUCOSE (Dip) 3+ mg/dL (NEGATIVE); UR KETONES (Dip) NEGATIVE (NEGATIVE); UR LEUKOCYTE ESTERASE (Dip) TRACE Leu/ul (NEGATIVE); UR MUCUS FEW /HPF (NONE SEEN); UR NITRITE (Dip) NEGATIVE (NEGATIVE); UR RBC 1 /HPF (0-5); UR SPECIFIC GRAVITY (Dip) 1.016 (1.003-1.030); UR TOTAL PROTEIN (Dip) NEGATIVE (NEGATIVE); UR UROBILINOGEN (Dip) NEGATIVE (NEGATIVE); UR WBC 27 /HPF (0-5)
[2018-10-06 18:35] LABS: ETHANOL < 10.0 mg/dl (0-0); GLUCOSE 950 mg/dl (70-220); POTASSIUM 2.9 mmol/L (3.5-5.1); SODIUM 118 mmol/L (135-144)
[2018-10-06 18:40] LABS: AMPHETAMINE/METHAMPHETAMINE Negative (NEGATIVE); BARBITURATES Negative (NEGATIVE); BENZODIAZEPINES Negative (NEGATIVE); CANNABINOIDS Negative (NEGATIVE); COCAINE Negative (NEGATIVE); OPIATES Negative (NEGATIVE)
[2018-10-06 19:11] LABS: ANISOCYTOSIS 1+ (0-0); BURR CELLS 1+ (0-0); LYMPHOCYTES % (M) 4 % (15-51); MONOCYTE #M 1.8 10^3/ul (0.3-0.9); MONOCYTES % (M) 7 % (0-11); POIKILOCYTOSIS 2+ (0-0); SEGMENTED NEUTROPHILS (M) % 89 % (39-77); SMUDGE%M 19 % (0-0)
[2018-10-06 19:14] LABS: AADO2 Arterial 25.5 mmHg (7.0-24.0); Arterial Base Excess -2.9 mmol/L (-3.0-3); Arterial Blood Gas Oxygen Sat 95.5 mmHG (95.0-98.0); Arterial COHb 0.3 % (0.0-3.0); Arterial Fraction of Oxyhgb 94.8 % (93.0-99.0); Arterial MetHb 0.4 % (0.0-1.5); MODE ROOM AIR; Site Right Brachial
[2018-10-06] MEDS ORDERED: ONDANSETRON 4 MG INJ IV (20:00)
[2018-10-06] MEDS ORDERED: IPRATROPIUM (NEB) 0.5 MG/2.5 ML AMP NEB (20:00)
[2018-10-06] MEDS: ACCU-CHEK XX ×4 (20:00→23:47)
[2018-10-06] MEDS ORDERED: INSULIN LISPRO 100 UNIT/ML VIAL SC (20:00)
[2018-10-06] MEDS ORDERED: morphine 2 MG INJ IV (20:00)
[2018-10-06] MEDS ORDERED: DEXTROSE 50% 50 ML SYRINGE IV ×2 (20:00)
[2018-10-06] MEDS ORDERED: INSULIN REGULAR, HUMAN 100 UNIT in SOD CHLORIDE 0.9% 100 ML IV (20:00)
[2018-10-06] MEDS ORDERED: ALBUTEROL 0.083% (NEB) 2.5 MG/3 ML AMP NEB (20:00)
[2018-10-06 20:06] LABS: LACTIC ACID 5.3 mmol/L (0.5-2.0)
[2018-10-06] MEDS: VANCOMYCIN 1 GM (PMX) 250 ML IVPB (20:14)
[2018-10-06] MEDS: SOD CHLORIDE 0.9% 1,000 ML IV (20:15)
[2018-10-06] MEDS: POTASSIUM CHLORIDE 50 ML IVPB (20:36)
[2018-10-06] MEDS: INSULIN HUMAN REGULAR 100 UNIT in SOD CHLORIDE 0.9% 99 ML IV ×2 (20:38→23:37)
[2018-10-06] MEDS: FAMOTIDINE 20 MG INJ IV (20:48)
[2018-10-06 23:24] LABS: LACTIC ACID 4.1 mmol/L (0.5-2.0)
[2018-10-06 23:34] LABS: ALANINE AMINOTRANSFERASE 20 IU/L (13-69); ALBUMIN 2.2 g/dl (3.3-4.9); ALBUMIN/GLOBULIN RATIO 0.59; ALKALINE PHOSPHATASE 148 IU/L (42-121); ANION GAP 10 (5-13); ASPARTATE AMINO TRANSFERASE 22 IU/L (15-46); BILIRUBIN,INDIRECT 0.9 mg/dl (0-1.1); BILIRUBIN,TOTAL 1.2 mg/dl (0.2-1.3); BLOOD UREA NITROGEN 37 mg/dl (7-20); CALCIUM 9.1 mg/dl (8.4-10.2); CARBON DIOXIDE 22 mmol/L (21-31); CHLORIDE 92 mmol/L (97-110); CREATININE 1.76 mg/dl (0.61-1.24); Estimated GFR 44 mL/min (>60); MAGNESIUM 2.3 mg/dl (1.7-2.5); SODIUM 124 mmol/L (135-144); TOTAL PROTEIN 5.9 g/dl (6.1-8.1)
[2018-10-06 23:41] LABS: GLUCOSE 613 mg/dl (70-220); POTASSIUM 2.4 mmol/L (3.5-5.1)
[2018-10-07] MEDS ORDERED: POTASSIUM CHLORIDE 50 ML IVPB ×2
[2018-10-07] MEDS: ACCU-CHEK XX ×5 (00:08→04:04)
[2018-10-07] MEDS: MAGNESIUM SULFATE 2 GM/50 ML 50 ML IVPB (00:18)
[2018-10-07] MEDS: SOD CHLORIDE 0.9% 1,000 ML IV (00:29)
[2018-10-07] MEDS ORDERED: POTASSIUM CHLORIDE 100 ML IVPB (00:30)
[2018-10-07] MEDS ORDERED: VANCOMYCIN IV PER PHARMACY XX (00:30)
[2018-10-07] MEDS: POTASSIUM CHLORIDE 30 MEQ in SOD CHLORIDE 0.45% 1,000 ML IV (01:29)
[2018-10-07 01:33] LABS: ANION GAP 8 (5-13); BLOOD UREA NITROGEN 34 mg/dl (7-20); CALCIUM 9.5 mg/dl (8.4-10.2); CARBON DIOXIDE 23 mmol/L (21-31); CHLORIDE 94 mmol/L (97-110); CREATININE 1.82 mg/dl (0.61-1.24); Estimated GFR 42 mL/min (>60); SODIUM 125 mmol/L (135-144)
[2018-10-07 01:34] LABS: POTASSIUM 2.1 mmol/L (3.5-5.1)
[2018-10-07 01:35] LABS: GLUCOSE 495 mg/dl (70-220)
[2018-10-07] MEDS: POTASSIUM CHLORIDE 100 ML IVPB ×3 (02:18→06:28)
[2018-10-07] MEDS: INSULIN HUMAN REGULAR 100 UNIT in SOD CHLORIDE 0.9% 99 ML IV (02:20)
[2018-10-07 02:56] LABS: ALANINE AMINOTRANSFERASE 19 IU/L (13-69); ALBUMIN 2.2 g/dl (3.3-4.9); ALBUMIN/GLOBULIN RATIO 0.56; ALKALINE PHOSPHATASE 145 IU/L (42-121); ANION GAP 10 (5-13); ASPARTATE AMINO TRANSFERASE 23 IU/L (15-46); BILIRUBIN,INDIRECT 0.9 mg/dl (0-1.1); BILIRUBIN,TOTAL 1.3 mg/dl (0.2-1.3); BLOOD UREA NITROGEN 32 mg/dl (7-20); CALCIUM 9.3 mg/dl (8.4-10.2); CARBON DIOXIDE 22 mmol/L (21-31); CHLORIDE 100 mmol/L (97-110); CREATININE 1.55 mg/dl (0.61-1.24); Estimated GFR 50 mL/min (>60); GLUCOSE 261 mg/dl (70-220); SODIUM 132 mmol/L (135-144); TOTAL PROTEIN 6.1 g/dl (6.1-8.1)
[2018-10-07 02:58] LABS: ETHANOL < 10.0 mg/dl (0-0)
[2018-10-07 03:00] LABS: AMMONIA 46 umol/l (9-30)
[2018-10-07] MEDS: POTASSIUM CHLORIDE (SR) 20 MEQ TAB PO ×3 (04:56→21:11)
[2018-10-07] MEDS ORDERED: GLUCOSE GEL 15 GRAM TUBE BUCCAL (05:00)
[2018-10-07] MEDS ORDERED: DEXTROSE 50% 50 ML SYRINGE IV ×2 (05:00)
[2018-10-07] MEDS ORDERED: GLUCOSE GEL 15 GRAM TUBE PO ×2 (05:00)
[2018-10-07] MEDS ORDERED: GLUCAGON 1 MG INJ IM (05:00)
[2018-10-07] MEDS: INSULIN ASPART [NOVOLOG] 3 ML PEN SC ×5 (05:00→21:14)
[2018-10-07 05:17] LABS: ADD MAN DIFF? NO
[2018-10-07 05:21] LABS: ABNORMAL IP MESSAGE 1; BASOPHIL # 0.2 10^3/ul (0.0-0.1); BASOPHILS % 0.7 % (0.0-2.0); EOSINOPHILS # 0.1 10^3/ul (0.0-0.5); EOSINOPHILS % 0.3 % (0.0-7.0); HEMATOCRIT 27.4 % (42.0-52.0); HEMOGLOBIN 9.8 g/dl (14.0-18.0); LYMPHOCYTES # 1.7 10^3/ul (0.8-2.9); LYMPHOCYTES % 7.3 % (15.0-51.0); MEAN CORPUSCULAR HEMOGLOBIN 30.9 pg (29.0-33.0); MEAN CORPUSCULAR HGB CONC 35.8 g/dl (32.0-37.0); MEAN CORPUSCULAR VOLUME 86.4 fl (82.0-101.0); MEAN PLATELET VOLUME 11.2 fl (7.4-10.4); MONOCYTE # 3.2 10^3/ul (0.3-0.9); MONOCYTES % 13.7 % (0.0-11.0); NEUTROPHIL # 17.8 10^3/ul (1.6-7.5); NEUTROPHILS % 75.5 % (39.0-77.0); PLATELET COUNT 112 10^3/UL (140-415); POSITIVE DIFF @See below; RED BLOOD COUNT 3.17 10^6/ul (4.70-6.10); RED CELL DISTRIBUTION WIDTH 12.9 % (11.5-14.5)
[2018-10-07 05:21] LABS: WHITE BLOOD COUNT 23.6 10^3/ul (4.8-10.8)
[2018-10-07] MEDS: POTASSIUM CHLORIDE 40 MEQ in SOD CHLORIDE 0.45% 1,000 ML IV ×3 (05:37→21:11)
[2018-10-07] MEDS: PIPER-TAZO 3.375 GM IV (PMX) 100 ML IVPB ×2 (05:38→12:25)
[2018-10-07] MEDS: LACTULOSE 30ML CUP PO ×3 (05:38→18:00)
[2018-10-07 05:45] LABS: INR 1.53; PROTIME 18.5 Sec (11.9-14.9); PT RATIO 1.4
[2018-10-07 05:50] LABS: ALANINE AMINOTRANSFERASE 19 IU/L (13-69); ALBUMIN 2.2 g/dl (3.3-4.9); ALBUMIN/GLOBULIN RATIO 0.56; ALKALINE PHOSPHATASE 147 IU/L (42-121); ANION GAP 7 (5-13); ASPARTATE AMINO TRANSFERASE 26 IU/L (15-46); BILIRUBIN,TOTAL 1.4 mg/dl (0.2-1.3); BLOOD UREA NITROGEN 31 mg/dl (7-20); CALCIUM 9.3 mg/dl (8.4-10.2); CARBON DIOXIDE 24 mmol/L (21-31); CHLORIDE 102 mmol/L (97-110); Estimated GFR 57 mL/min (>60); GLUCOSE 134 mg/dl (70-220); SODIUM 133 mmol/L (135-144); TOTAL PROTEIN 6.1 g/dl (6.1-8.1)
[2018-10-07 05:54] LABS: POTASSIUM 2.4 mmol/L (3.5-5.1)
[2018-10-07 07:46] LABS: SEGMENTED NEUTROPHILS (M) % 73 % (39-77)
[2018-10-07 07:47] LABS: BAND NEUTROPHILS #M 0.7 10^3/ul (0.0-0.6); BAND NEUTROPHILS % (M) 3 % (0-4); GIANT THROMBO% (M) 1 % (0-0); HYPOCHROMASIA 1+ (0-0); LYMPHOCYTES % (M) 13 % (15-51); MONOCYTE #M 2.3 10^3/ul (0.3-0.9); MONOCYTES % (M) 10 % (0-11); MYELOCYTES #M 0.2 10^3/ul (0.0-0.0); MYELOCYTES % (M) 1 % (0-0); PLATELET ESTIMATE DECREASED; SEG NEUT #M 17.4 10^3/ul (1.6-7.5); SMUDGE%M 13 % (0-0)
[2018-10-07 08:28] LABS: HEMOGLOBIN A1C 10.2 % (0-5.9)
[2018-10-07] MEDS: MULTIVITAMINS THERAPEUTIC TAB PO (09:58)
[2018-10-07] MEDS: THIAMINE 100 MG TAB PO (09:58)
[2018-10-07] MEDS: FOLIC ACID 1 MG TAB PO (09:58)
[2018-10-07] MEDS: FAMOTIDINE 20 MG INJ IV (09:59)
[2018-10-07 10:02] LABS: ANION GAP 10 (5-13); BLOOD UREA NITROGEN 28 mg/dl (7-20); CARBON DIOXIDE 20 mmol/L (21-31); CHLORIDE 103 mmol/L (97-110); CREATININE 1.41 mg/dl (0.61-1.24); Estimated GFR 56 mL/min (>60); GLUCOSE 223 mg/dl (70-220); MAGNESIUM 2.6 mg/dl (1.7-2.5); PHOSPHORUS 2.5 mg/dl (2.5-4.9); POTASSIUM 3.5 mmol/L (3.5-5.1); SODIUM 133 mmol/L (135-144)
[2018-10-07] MEDS: POTASSIUM CHLORIDE 50 ML IVPB ×2 (16:01→17:23)
[2018-10-07] MEDS: metroNIDAZOLE 500 MG TAB PO ×2 (16:01→21:11)
[2018-10-07] MEDS: CIPROFLOXACIN 500 MG TAB PO (19:56)
[2018-10-07] MEDS ORDERED: VANCOMYCIN 1 GM 250 ML IVPB (20:00)
[2018-10-07 22:14] LABS: ADD UMIC YES; UR ASCORBIC ACID NEGATIVE (NEGATIVE); UR BACTERIA FEW /HPF (NONE SEEN); UR BILIRUBIN (Dip) NEGATIVE (NEGATIVE); UR BLOOD (Dip) 1+ mg/dL (NEGATIVE); UR CLARITY CLEAR (CLEAR); UR COLOR YELLOW (YELLOW); UR GLUCOSE (Dip) 3+ mg/dL (NEGATIVE); UR KETONES (Dip) NEGATIVE (NEGATIVE); UR LEUKOCYTE ESTERASE (Dip) 1+ Leu/ul (NEGATIVE); UR NITRITE (Dip) NEGATIVE (NEGATIVE); UR RBC 1 /HPF (0-5); UR SPECIFIC GRAVITY (Dip) 1.009 (1.003-1.030); UR TOTAL PROTEIN (Dip) NEGATIVE (NEGATIVE); UR UROBILINOGEN (Dip) 1+ mg/dL (NEGATIVE); UR WBC 19 /HPF (0-5)
[2018-10-07 22:23] LABS: CREATININE,URINE RANDOM 26.87 mg/dl (20-370)
[2018-10-07 22:23] LABS: SODIUM,URINE RANDOM 41 mmol/L (30-90)
[2018-10-08] MEDS: ACETAMINOPHEN 650MG/20.3ML CUP PO ×2 (00:01→21:52)
[2018-10-08] MEDS ORDERED: ACCU-CHEK XX (02:00)
[2018-10-08] MEDS: CIPROFLOXACIN 500 MG TAB PO (05:09)
[2018-10-08] MEDS: metroNIDAZOLE 500 MG TAB PO (05:09)
[2018-10-08] MEDS: LACTULOSE 30ML CUP PO ×5 (05:10→23:23)
[2018-10-08 05:31] LABS: ADD MAN DIFF? NO
[2018-10-08 05:36] LABS: WHITE BLOOD COUNT 22.2 10^3/ul (4.8-10.8)
[2018-10-08 05:36] LABS: ABNORMAL IP MESSAGE 1; BASOPHIL # 0.1 10^3/ul (0.0-0.1); BASOPHILS % 0.3 % (0.0-2.0); EOSINOPHILS # 0.2 10^3/ul (0.0-0.5); EOSINOPHILS % 0.7 % (0.0-7.0); HEMATOCRIT 27.7 % (42.0-52.0); HEMOGLOBIN 9.9 g/dl (14.0-18.0); LYMPHOCYTES # 1.7 10^3/ul (0.8-2.9); LYMPHOCYTES % 7.7 % (15.0-51.0); MEAN CORPUSCULAR HEMOGLOBIN 31.2 pg (29.0-33.0); MEAN CORPUSCULAR HGB CONC 35.7 g/dl (32.0-37.0); MEAN CORPUSCULAR VOLUME 87.4 fl (82.0-101.0); MONOCYTES % 9.2 % (0.0-11.0); NEUTROPHIL # 17.4 10^3/ul (1.6-7.5); NEUTROPHILS % 78.1 % (39.0-77.0); PLATELET COUNT 111 10^3/UL (140-415); POSITIVE DIFF @See below; RED BLOOD COUNT 3.17 10^6/ul (4.70-6.10); RED CELL DISTRIBUTION WIDTH 13.9 % (11.5-14.5)
[2018-10-08 05:57] LABS: INR 1.68; PROTIME 19.9 Sec (11.9-14.9); PT RATIO 1.6
[2018-10-08 06:00] LABS: ALANINE AMINOTRANSFERASE 27 IU/L (13-69); ALBUMIN/GLOBULIN RATIO 0.51; ALKALINE PHOSPHATASE 168 IU/L (42-121); ANION GAP 8 (5-13); ASPARTATE AMINO TRANSFERASE 39 IU/L (15-46); BILIRUBIN,INDIRECT 1.4 mg/dl (0-1.1); BILIRUBIN,TOTAL 3.7 mg/dl (0.2-1.3); BLOOD UREA NITROGEN 24 mg/dl (7-20); CALCIUM 8.9 mg/dl (8.4-10.2); CARBON DIOXIDE 21 mmol/L (21-31); CHLORIDE 103 mmol/L (97-110); CREATININE 1.19 mg/dl (0.61-1.24); Estimated GFR > 60 mL/min (>60); GLUCOSE 277 mg/dl (70-220); POTASSIUM 3.8 mmol/L (3.5-5.1); SODIUM 132 mmol/L (135-144); TOTAL PROTEIN 5.9 g/dl (6.1-8.1)
[2018-10-08 07:30] LABS: BAND NEUTROPHILS #M 2.4 10^3/ul (0.0-0.6); BAND NEUTROPHILS % (M) 11 % (0-4); BURR CELLS 1+ (0-0); EOSINOPHILS % (M) 1 % (0-7); LYMPHOCYTES #M 0.6 10^3/ul (0.8-2.9); LYMPHOCYTES % (M) 3 % (15-51); MONOCYTE #M 1.1 10^3/ul (0.3-0.9); MONOCYTES % (M) 5 % (0-11); MYELOCYTES #M 0.4 10^3/ul (0.0-0.0); MYELOCYTES % (M) 2 % (0-0); PLATELET ESTIMATE DECREASED; POIKILOCYTOSIS 1+ (0-0); POLYCHROMASIA 1+ (0-0); PROMYELOCYTES #M 0.4 10^3/ul (0-0); PROMYELOCYTES % (M) 2 % (0-0); SEG NEUT #M 17.4 10^3/ul (1.6-7.5); SEGMENTED NEUTROPHILS (M) % 76 % (39-77); SMUDGE%M 10 % (0-0); SPHEROCYTES 1+ (0-0)
[2018-10-08] MEDS: INSULIN ASPART [NOVOLOG] 3 ML PEN SC ×4 (07:47→21:06)
[2018-10-08] MEDS: THIAMINE 100 MG TAB PO (08:52)
[2018-10-08] MEDS: FAMOTIDINE 20 MG TAB PO (08:52)
[2018-10-08] MEDS: MULTIVITAMINS THERAPEUTIC TAB PO (08:52)
[2018-10-08] MEDS: FOLIC ACID 1 MG TAB PO (08:52)
[2018-10-08] MEDS: PIPER-TAZO 3.375 GM IV (PMX) 100 ML IVPB ×3 (11:57→23:26)
[2018-10-08] MEDS: INSULIN GLARGINE [LANTus] (100 UNITS/ML) SYG SC (21:06)
[2018-10-09] MEDS: LACTULOSE 30ML CUP PO ×4 (05:45→23:06)
[2018-10-09] MEDS: PIPER-TAZO 3.375 GM IV (PMX) 100 ML IVPB ×4 (05:55→23:11)
[2018-10-09 06:06] LABS: ABNORMAL IP MESSAGE 1; HEMATOCRIT 30.7 % (42.0-52.0); HEMOGLOBIN 10.7 g/dl (14.0-18.0); MEAN CORPUSCULAR HEMOGLOBIN 30.7 pg (29.0-33.0); MEAN CORPUSCULAR HGB CONC 34.9 g/dl (32.0-37.0); MEAN PLATELET VOLUME 10.8 fl (7.4-10.4); PLATELET COUNT 132 10^3/UL (140-415); POSITIVE DIFF @See below; RED BLOOD COUNT 3.49 10^6/ul (4.70-6.10); RED CELL DISTRIBUTION WIDTH 14.6 % (11.5-14.5)
[2018-10-09 06:06] LABS: WHITE BLOOD COUNT 29.2 10^3/ul (4.8-10.8)
[2018-10-09 06:15] LABS: ADD MAN DIFF? YES
[2018-10-09 06:21] LABS: INR 1.78; PROTIME 20.8 Sec (11.9-14.9); PT RATIO 1.6
[2018-10-09 06:34] LABS: ALANINE AMINOTRANSFERASE 23 IU/L (13-69); ALBUMIN 2.1 g/dl (3.3-4.9); ALBUMIN/GLOBULIN RATIO 0.52; ALKALINE PHOSPHATASE 185 IU/L (42-121); ANION GAP 7 (5-13); ASPARTATE AMINO TRANSFERASE 42 IU/L (15-46); BILIRUBIN,INDIRECT 1.6 mg/dl (0-1.1); BILIRUBIN,TOTAL 3.7 mg/dl (0.2-1.3); BLOOD UREA NITROGEN 20 mg/dl (7-20); CALCIUM 9.1 mg/dl (8.4-10.2); CARBON DIOXIDE 23 mmol/L (21-31); CHLORIDE 101 mmol/L (97-110); CREATININE 1.29 mg/dl (0.61-1.24); Estimated GFR > 60 mL/min (>60); GLUCOSE 147 mg/dl (70-220); POTASSIUM 3.2 mmol/L (3.5-5.1); SODIUM 131 mmol/L (135-144); TOTAL PROTEIN 6.1 g/dl (6.1-8.1)
[2018-10-09] MEDS: INSULIN ASPART [NOVOLOG] 3 ML PEN SC ×4 (08:00→20:21)
[2018-10-09] MEDS: MULTIVITAMINS THERAPEUTIC TAB PO (08:00)
[2018-10-09] MEDS: THIAMINE 100 MG TAB PO (08:00)
[2018-10-09] MEDS: FOLIC ACID 1 MG TAB PO (08:01)
[2018-10-09] MEDS: POTASSIUM CHLORIDE (SR) 20 MEQ TAB PO (08:01)
[2018-10-09] MEDS: FAMOTIDINE 20 MG TAB PO (08:01)
[2018-10-09 09:32] LABS: ANISOCYTOSIS 1+ (0-0); BAND NEUTROPHILS #M 0.5 10^3/ul (0.0-0.6); BAND NEUTROPHILS % (M) 2 % (0-4); BURR CELLS 1+ (0-0); EOSINOPHILS % (M) 2 % (0-7); GIANT THROMBO% (M) 4 % (0-0); LYMPHOCYTES #M 1.4 10^3/ul (0.8-2.9); LYMPHOCYTES % (M) 5 % (15-51); MONOCYTE #M 2.9 10^3/ul (0.3-0.9); MONOCYTES % (M) 10 % (0-11); PLASMA CELLS #M 0.2 10^3/ul (0.0-0.0); PLASMAC%(M) 1 % (0); PLATELET ESTIMATE DECREASED; POIKILOCYTOSIS 1+ (0-0); POLYCHROMASIA 2+ (0-0); SEG NEUT #M 23.5 10^3/ul (1.6-7.5); SEGMENTED NEUTROPHILS (M) % 80 % (39-77); SMUDGE%M 10 % (0-0); TOXIC GRANULATION 1+ (0-0)
[2018-10-09] MEDS: INSULIN GLARGINE [LANTus] (100 UNITS/ML) SYG SC (20:24)
[2018-10-10 05:35] LABS: ABNORMAL IP MESSAGE 1; HEMATOCRIT 31.8 % (42.0-52.0); HEMOGLOBIN 11.1 g/dl (14.0-18.0); MEAN CORPUSCULAR HEMOGLOBIN 30.6 pg (29.0-33.0); MEAN CORPUSCULAR HGB CONC 34.9 g/dl (32.0-37.0); MEAN CORPUSCULAR VOLUME 87.6 fl (82.0-101.0); MEAN PLATELET VOLUME 10.5 fl (7.4-10.4); PLATELET COUNT 167 10^3/UL (140-415); POSITIVE DIFF @See below; RED BLOOD COUNT 3.63 10^6/ul (4.70-6.10); RED CELL DISTRIBUTION WIDTH 14.9 % (11.5-14.5)
[2018-10-10 05:35] LABS: WHITE BLOOD COUNT 32.7 10^3/ul (4.8-10.8)
[2018-10-10 05:41] LABS: ADD MAN DIFF? YES
[2018-10-10] MEDS: LACTULOSE 30ML CUP PO ×3 (05:47→17:27)
[2018-10-10] MEDS: PIPER-TAZO 3.375 GM IV (PMX) 100 ML IVPB ×3 (05:47→17:27)
[2018-10-10 05:55] LABS: INR 1.69; PT RATIO 1.6
[2018-10-10 06:20] LABS: ALANINE AMINOTRANSFERASE 27 IU/L (13-69); ALBUMIN 2.2 g/dl (3.3-4.9); ALKALINE PHOSPHATASE 211 IU/L (42-121); ANION GAP 8 (5-13); ASPARTATE AMINO TRANSFERASE 53 IU/L (15-46); BILIRUBIN,INDIRECT 1.4 mg/dl (0-1.1); BILIRUBIN,TOTAL 2.5 mg/dl (0.2-1.3); BLOOD UREA NITROGEN 20 mg/dl (7-20); CALCIUM 8.2 mg/dl (8.4-10.2); CARBON DIOXIDE 22 mmol/L (21-31); CHLORIDE 101 mmol/L (97-110); CREATININE 1.14 mg/dl (0.61-1.24); Estimated GFR > 60 mL/min (>60); GLUCOSE 92 mg/dl (70-220); SODIUM 131 mmol/L (135-144); TOTAL PROTEIN 6.6 g/dl (6.1-8.1)
[2018-10-10 06:42] LABS: POTASSIUM 2.8 mmol/L (3.5-5.1)
[2018-10-10 07:21] LABS: ANISOCYTOSIS 2+ (0-0); BAND NEUTROPHILS #M 0.6 10^3/ul (0.0-0.6); BAND NEUTROPHILS % (M) 2 % (0-4); BURR CELLS 2+ (0-0); EOSINOPHILS % (M) 1 % (0-7); GIANT THROMBO% (M) 2 % (0-0); LYMPHOCYTES #M 2.2 10^3/ul (0.8-2.9); LYMPHOCYTES % (M) 7 % (15-51); METAMYELOCYTES #M 0.3 10^3/ul (0.0-0.0); METAMYELOCYTES %M 1 % (0-0); MONOCYTE #M 2.9 10^3/ul (0.3-0.9); MONOCYTES % (M) 9 % (0-11); MYELOCYTES #M 0.3 10^3/ul (0.0-0.0); MYELOCYTES % (M) 1 % (0-0); PLATELET ESTIMATE NORMAL; POIKILOCYTOSIS 2+ (0-0); POLYCHROMASIA 1+ (0-0); REACTIVE LYMPHOCYTES #M 0.3 10^3/ul (0.0-0.0); REACTIVE LYMPHOCYTES% (M) 1 % (0-0); SEG NEUT #M 25.7 10^3/ul (1.6-7.5); SEGMENTED NEUTROPHILS (M) % 78 % (39-77); SMUDGE%M 5 % (0-0); TOXIC GRANULATION 1+ (0-0)
[2018-10-10] MEDS: INSULIN ASPART [NOVOLOG] 3 ML PEN SC ×4 (07:53→20:37)
[2018-10-10] MEDS: THIAMINE 100 MG TAB PO (08:17)
[2018-10-10] MEDS: POTASSIUM CHLORIDE (SR) 20 MEQ TAB PO (08:17)
[2018-10-10] MEDS: MULTIVITAMINS THERAPEUTIC TAB PO (08:17)
[2018-10-10] MEDS: FOLIC ACID 1 MG TAB PO (08:17)
[2018-10-10] MEDS: FAMOTIDINE 20 MG TAB PO (08:17)
[2018-10-10 08:41] LABS: PROCALCITONIN 5.51 ng/mL (0.00-0.10)
[2018-10-10] MEDS: POTASSIUM CHLORIDE 100 ML IVPB ×2 (15:32→17:27)
[2018-10-10] MEDS: INSULIN GLARGINE [LANTus] (100 UNITS/ML) SYG SC (20:36)
[2018-10-11] MEDS: LACTULOSE 30ML CUP PO ×4 (00:02→18:00)
[2018-10-11] MEDS: PIPER-TAZO 3.375 GM IV (PMX) 100 ML IVPB (00:02)
[2018-10-11] MEDS: ACETAMINOPHEN 650MG/20.3ML CUP PO (00:45)
[2018-10-11] MEDS: LEVOFLOXACIN 500MG/D5W (PMX) 100 ML IVPB (01:42)
[2018-10-11 06:20] LABS: INR 1.65; PROTIME 19.6 Sec (11.9-14.9); PT RATIO 1.5
[2018-10-11 06:33] LABS: LACTIC ACID 1.6 mmol/L (0.5-2.0)
[2018-10-11 07:00] LABS: SODIUM,URINE RANDOM < 13 mmol/L (30-90)
[2018-10-11 07:01] LABS: PROSTATE SPECIFIC ANTIGEN 1.1 ng/ml (0.0-4.0)
[2018-10-11 07:07] LABS: OSMOLALITY,URINE 274 mOsm/kg (250-1200)
[2018-10-11 07:11] LABS: HIV 1&2 ANTIBODY NEGATIVE (NEGATIVE)
[2018-10-11 07:15] LABS: ALPHA FETOPROTEIN 4.18 IU/L (0.00-7.21)
[2018-10-11 07:22] LABS: PROCALCITONIN 4.88 ng/mL (0.00-0.10)
[2018-10-11 07:48] LABS: LIPASE 335 U/L (23-300)
[2018-10-11] MEDS: INSULIN ASPART [NOVOLOG] 3 ML PEN SC ×4 (08:00→21:00)
[2018-10-11] MEDS: FAMOTIDINE 20 MG TAB PO (08:18)
[2018-10-11] MEDS: MULTIVITAMINS THERAPEUTIC TAB PO (08:18)
[2018-10-11] MEDS: THIAMINE 100 MG TAB PO (08:19)
[2018-10-11] MEDS: POTASSIUM CHLORIDE (SR) 20 MEQ TAB PO (08:19)
[2018-10-11] MEDS: FOLIC ACID 1 MG TAB PO (08:19)
[2018-10-11 15:30] LABS: ADD MAN DIFF? NO
[2018-10-11 15:33] LABS: WHITE BLOOD COUNT 21.9 10^3/ul (4.8-10.8)
[2018-10-11 15:33] LABS: ABNORMAL IP MESSAGE 1; BASOPHIL # 0.1 10^3/ul (0.0-0.1); BASOPHILS % 0.5 % (0.0-2.0); EOSINOPHILS # 0.2 10^3/ul (0.0-0.5); HEMATOCRIT 33.1 % (42.0-52.0); HEMOGLOBIN 10.9 g/dl (14.0-18.0); MEAN CORPUSCULAR HEMOGLOBIN 30.1 pg (29.0-33.0); MEAN CORPUSCULAR HGB CONC 32.9 g/dl (32.0-37.0); MEAN CORPUSCULAR VOLUME 91.4 fl (82.0-101.0); MEAN PLATELET VOLUME 10.1 fl (7.4-10.4); MONOCYTE # 2.3 10^3/ul (0.3-0.9); MONOCYTES % 10.5 % (0.0-11.0); NEUTROPHIL # 16.3 10^3/ul (1.6-7.5); NEUTROPHILS % 74.4 % (39.0-77.0); PLATELET COUNT 160 10^3/UL (140-415); POSITIVE DIFF @See below; RED BLOOD COUNT 3.62 10^6/ul (4.70-6.10); RED CELL DISTRIBUTION WIDTH 15.5 % (11.5-14.5)
[2018-10-11 15:37] LABS: CREATININE, RANDOM URINE 38 mg/dL (20-320); MICROALBUMIN 3.2 mg/dL; MICROALBUMIN/CREATININE RATIO 84 (<30)
[2018-10-11 15:49] LABS: ANION GAP 7 (5-13); BLOOD UREA NITROGEN 18 mg/dl (7-20); CALCIUM 8.1 mg/dl (8.4-10.2); CARBON DIOXIDE 21 mmol/L (21-31); CHLORIDE 104 mmol/L (97-110); CREATININE 1.16 mg/dl (0.61-1.24); Estimated GFR > 60 mL/min (>60); GLUCOSE 108 mg/dl (70-220); POTASSIUM 4.3 mmol/L (3.5-5.1); SODIUM 132 mmol/L (135-144)
[2018-10-11 15:54] LABS: AMMONIA < 9 umol/l (9-30)
[2018-10-11] MEDS: INSULIN GLARGINE [LANTus] (100 UNITS/ML) SYG SC (20:16)
[2018-10-12] MEDS: LEVOFLOXACIN 500MG/D5W (PMX) 100 ML IVPB (00:49)
[2018-10-12] MEDS: LACTULOSE 30ML CUP PO ×2 (00:50→05:46)
[2018-10-12 06:11] LABS: ADD MAN DIFF? NO
[2018-10-12 06:25] LABS: ABNORMAL IP MESSAGE 1; BASOPHIL # 0.2 10^3/ul (0.0-0.1); BASOPHILS % 0.7 % (0.0-2.0); EOSINOPHILS # 0.3 10^3/ul (0.0-0.5); EOSINOPHILS % 1.1 % (0.0-7.0); HEMATOCRIT 31.2 % (42.0-52.0); HEMOGLOBIN 10.5 g/dl (14.0-18.0); LYMPHOCYTES # 2.6 10^3/ul (0.8-2.9); LYMPHOCYTES % 11.6 % (15.0-51.0); MEAN CORPUSCULAR HEMOGLOBIN 30.2 pg (29.0-33.0); MEAN CORPUSCULAR HGB CONC 33.7 g/dl (32.0-37.0); MEAN CORPUSCULAR VOLUME 89.7 fl (82.0-101.0); MEAN PLATELET VOLUME 10.3 fl (7.4-10.4); MONOCYTE # 2.8 10^3/ul (0.3-0.9); MONOCYTES % 12.4 % (0.0-11.0); NEUTROPHILS % 69.9 % (39.0-77.0); PLATELET COUNT 170 10^3/UL (140-415); POSITIVE DIFF @See below; RED BLOOD COUNT 3.48 10^6/ul (4.70-6.10); RED CELL DISTRIBUTION WIDTH 15.8 % (11.5-14.5)
[2018-10-12 06:25] LABS: WHITE BLOOD COUNT 22.8 10^3/ul (4.8-10.8)
[2018-10-12 06:54] LABS: ANION GAP 6 (5-13); BLOOD UREA NITROGEN 15 mg/dl (7-20); CALCIUM 7.8 mg/dl (8.4-10.2); CARBON DIOXIDE 19 mmol/L (21-31); CHLORIDE 104 mmol/L (97-110); CREATININE 0.99 mg/dl (0.61-1.24); Estimated GFR > 60 mL/min (>60); GLUCOSE 64 mg/dl (70-220); MAGNESIUM 1.6 mg/dl (1.7-2.5); POTASSIUM 3.2 mmol/L (3.5-5.1); SODIUM 129 mmol/L (135-144)
[2018-10-12] MEDS: INSULIN ASPART [NOVOLOG] 3 ML PEN SC ×4 (07:52→20:41)
[2018-10-12] MEDS: FAMOTIDINE 20 MG TAB PO (08:33)
[2018-10-12] MEDS: FOLIC ACID 1 MG TAB PO (08:33)
[2018-10-12] MEDS: POTASSIUM CHLORIDE (SR) 20 MEQ TAB PO (08:33)
[2018-10-12] MEDS: MULTIVITAMINS THERAPEUTIC TAB PO (08:33)
[2018-10-12] MEDS: THIAMINE 100 MG TAB PO (08:33)
[2018-10-12] MEDS: MAGNESIUM SULFATE 1 GM/D5W 100 ML IVPB (11:36)
[2018-10-12] MEDS: LIDOCAINE 1% (MPF) 5 ML VIAL (15:32)
[2018-10-12 16:48] LABS: FLD MN% 45.9 %; FLD PMN% 54.1 %; FLD RBC 1000 /uL; FLD WBC 2601 /cmm
[2018-10-12 16:59] LABS: FLUID LD 416 U/L
[2018-10-12 17:00] LABS: FLUID TOTAL PROTEIN < 2.0 g/dl; FLUID TYPE FLUID
[2018-10-12 19:18] LABS: FLD CLARITY HAZY; FLD COLOR YELLOW
[2018-10-12 19:18] LABS: FLD TYPE PARACENTHESIS
[2018-10-12] MEDS: INSULIN GLARGINE [LANTus] (100 UNITS/ML) SYG SC (20:40)
[2018-10-13] MEDS: LEVOFLOXACIN 500MG/D5W (PMX) 100 ML IVPB (01:10)
[2018-10-13 06:21] LABS: ANION GAP 11 (5-13); BLOOD UREA NITROGEN 15 mg/dl (7-20); CALCIUM 7.5 mg/dl (8.4-10.2); CARBON DIOXIDE 20 mmol/L (21-31); CHLORIDE 102 mmol/L (97-110); CREATININE 0.94 mg/dl (0.61-1.24); Estimated GFR > 60 mL/min (>60); GLUCOSE 133 mg/dl (70-220); POTASSIUM 3.6 mmol/L (3.5-5.1); SODIUM 133 mmol/L (135-144)
[2018-10-13 07:10] LABS: MAGNESIUM 1.6 mg/dl (1.7-2.5)
[2018-10-13] MEDS: INSULIN ASPART [NOVOLOG] 3 ML PEN SC ×4 (08:00→20:41)
[2018-10-13] MEDS: MULTIVITAMINS THERAPEUTIC TAB PO (08:27)
[2018-10-13] MEDS: POTASSIUM CHLORIDE (SR) 20 MEQ TAB PO (08:27)
[2018-10-13] MEDS: FOLIC ACID 1 MG TAB PO (08:27)
[2018-10-13] MEDS: THIAMINE 100 MG TAB PO (08:27)
[2018-10-13] MEDS: FAMOTIDINE 20 MG TAB PO (08:27)
[2018-10-13 08:35] LABS: ABNORMAL IP MESSAGE 1; HEMATOCRIT 35.2 % (42.0-52.0); HEMOGLOBIN 11.7 g/dl (14.0-18.0); MEAN CORPUSCULAR HEMOGLOBIN 30.1 pg (29.0-33.0); MEAN CORPUSCULAR HGB CONC 33.2 g/dl (32.0-37.0); MEAN CORPUSCULAR VOLUME 90.5 fl (82.0-101.0); MEAN PLATELET VOLUME 10.1 fl (7.4-10.4); PLATELET COUNT 215 10^3/UL (140-415); POSITIVE DIFF @See below; RED BLOOD COUNT 3.89 10^6/ul (4.70-6.10)
[2018-10-13 08:35] LABS: WHITE BLOOD COUNT 32.8 10^3/ul (4.8-10.8)
[2018-10-13 08:43] LABS: ADD MAN DIFF? YES
[2018-10-13 09:44] LABS: ANISOCYTOSIS 2+ (0-0); BURR CELLS 1+ (0-0); GIANT THROMBO% (M) 1 % (0-0); LYMPHOCYTES #M 3.2 10^3/ul (0.8-2.9); LYMPHOCYTES % (M) 10 % (15-51); MONOCYTE #M 2.9 10^3/ul (0.3-0.9); MONOCYTES % (M) 9 % (0-11); PLATELET ESTIMATE NORMAL; POIKILOCYTOSIS 1+ (0-0); REACTIVE LYMPHOCYTES #M 0.3 10^3/ul (0.0-0.0); REACTIVE LYMPHOCYTES% (M) 1 % (0-0); SEGMENTED NEUTROPHILS (M) % 80 % (39-77); SMUDGE%M 9 % (0-0)
[2018-10-13] MEDS: MAGNESIUM SULFATE 1 GM/D5W 100 ML IVPB (12:15)
[2018-10-13] MEDS: INSULIN GLARGINE [LANTus] (100 UNITS/ML) SYG SC (20:39)
[2018-10-14] MEDS: LEVOFLOXACIN 500MG/D5W (PMX) 100 ML IVPB (01:27)
[2018-10-14 06:02] LABS: ADD MAN DIFF? NO
[2018-10-14 06:05] LABS: ABNORMAL IP MESSAGE 1; BASOPHIL # 0.1 10^3/ul (0.0-0.1); BASOPHILS % 0.6 % (0.0-2.0); EOSINOPHILS # 0.2 10^3/ul (0.0-0.5); EOSINOPHILS % 0.8 % (0.0-7.0); HEMATOCRIT 28.3 % (42.0-52.0); HEMOGLOBIN 9.5 g/dl (14.0-18.0); LYMPHOCYTES # 2.8 10^3/ul (0.8-2.9); LYMPHOCYTES % 13.7 % (15.0-51.0); MEAN CORPUSCULAR HEMOGLOBIN 30.4 pg (29.0-33.0); MEAN CORPUSCULAR HGB CONC 33.6 g/dl (32.0-37.0); MEAN CORPUSCULAR VOLUME 90.7 fl (82.0-101.0); MONOCYTE # 2.5 10^3/ul (0.3-0.9); MONOCYTES % 12.2 % (0.0-11.0); NEUTROPHILS % 70.1 % (39.0-77.0); PLATELET COUNT 141 10^3/UL (140-415); POSITIVE DIFF @See below; RED BLOOD COUNT 3.12 10^6/ul (4.70-6.10); RED CELL DISTRIBUTION WIDTH 15.9 % (11.5-14.5)
[2018-10-14 06:28] LABS: ANION GAP 10 (5-13); BLOOD UREA NITROGEN 12 mg/dl (7-20); CALCIUM 7.5 mg/dl (8.4-10.2); CARBON DIOXIDE 19 mmol/L (21-31); CHLORIDE 104 mmol/L (97-110); CREATININE 1.04 mg/dl (0.61-1.24); Estimated GFR > 60 mL/min (>60); GLUCOSE 147 mg/dl (70-220); MAGNESIUM 1.7 mg/dl (1.7-2.5); PHOSPHORUS 3.8 mg/dl (2.5-4.9); POTASSIUM 3.4 mmol/L (3.5-5.1); SODIUM 133 mmol/L (135-144)
[2018-10-14 06:45] LABS: ALANINE AMINOTRANSFERASE 34 IU/L (13-69); ALBUMIN/GLOBULIN RATIO 0.43; ALKALINE PHOSPHATASE 318 IU/L (42-121); ANION GAP 8 (5-13); ASPARTATE AMINO TRANSFERASE 67 IU/L (15-46); BILIRUBIN,INDIRECT 0.9 mg/dl (0-1.1); BILIRUBIN,TOTAL 0.9 mg/dl (0.2-1.3); BLOOD UREA NITROGEN 13 mg/dl (7-20); CALCIUM 7.4 mg/dl (8.4-10.2); CARBON DIOXIDE 19 mmol/L (21-31); CHLORIDE 103 mmol/L (97-110); CREATININE 0.95 mg/dl (0.61-1.24); Estimated GFR > 60 mL/min (>60); GLUCOSE 155 mg/dl (70-220); POTASSIUM 3.2 mmol/L (3.5-5.1); SODIUM 130 mmol/L (135-144); TOTAL PROTEIN 6.6 g/dl (6.1-8.1)
[2018-10-14 06:53] LABS: AMMONIA 22 umol/l (9-30)
[2018-10-14] MEDS: INSULIN ASPART [NOVOLOG] 3 ML PEN SC ×4 (08:00→21:00)
[2018-10-14] MEDS: MULTIVITAMINS THERAPEUTIC TAB PO (09:01)
[2018-10-14] MEDS: FAMOTIDINE 20 MG TAB PO (09:01)
[2018-10-14] MEDS: THIAMINE 100 MG TAB PO (09:01)
[2018-10-14] MEDS: POTASSIUM CHLORIDE (SR) 20 MEQ TAB PO ×2 (09:02→12:09)
[2018-10-14] MEDS: FOLIC ACID 1 MG TAB PO (09:02)
[2018-10-14] MEDS: LINAGLIPTIN 5 MG TABLET PO (13:06)
[2018-10-14 13:37] LABS: C-PEPTIDE 2.04 ng/mL (0.80-3.85)
[2018-10-14] MEDS: INSULIN GLARGINE [LANTus] (100 UNITS/ML) SYG SC (21:08)
[2018-10-15] MEDS: LEVOFLOXACIN 500MG/D5W (PMX) 100 ML IVPB (01:41)
[2018-10-15 05:42] LABS: ADD MAN DIFF? NO
[2018-10-15 05:51] LABS: ABNORMAL IP MESSAGE 1; BASOPHIL # 0.1 10^3/ul (0.0-0.1); BASOPHILS % 0.5 % (0.0-2.0); EOSINOPHILS # 0.2 10^3/ul (0.0-0.5); EOSINOPHILS % 1.1 % (0.0-7.0); HEMOGLOBIN 9.4 g/dl (14.0-18.0); LYMPHOCYTES % 15.4 % (15.0-51.0); MEAN CORPUSCULAR HEMOGLOBIN 30.6 pg (29.0-33.0); MEAN CORPUSCULAR HGB CONC 33.6 g/dl (32.0-37.0); MEAN CORPUSCULAR VOLUME 91.2 fl (82.0-101.0); MONOCYTE # 2.2 10^3/ul (0.3-0.9); MONOCYTES % 11.2 % (0.0-11.0); NEUTROPHIL # 13.6 10^3/ul (1.6-7.5); NEUTROPHILS % 68.9 % (39.0-77.0); PLATELET COUNT 166 10^3/UL (140-415); POSITIVE DIFF @See below; RED BLOOD COUNT 3.07 10^6/ul (4.70-6.10); RED CELL DISTRIBUTION WIDTH 15.9 % (11.5-14.5)
[2018-10-15 05:51] LABS: WHITE BLOOD COUNT 19.7 10^3/ul (4.8-10.8)
[2018-10-15 06:26] LABS: ANION GAP 8 (5-13); BLOOD UREA NITROGEN 11 mg/dl (7-20); CALCIUM 7.5 mg/dl (8.4-10.2); CARBON DIOXIDE 19 mmol/L (21-31); CHLORIDE 106 mmol/L (97-110); CREATININE 0.97 mg/dl (0.61-1.24); Estimated GFR > 60 mL/min (>60); GLUCOSE 94 mg/dl (70-220); MAGNESIUM 1.5 mg/dl (1.7-2.5); PHOSPHORUS 3.9 mg/dl (2.5-4.9); POTASSIUM 3.2 mmol/L (3.5-5.1); SODIUM 133 mmol/L (135-144)
[2018-10-15] MEDS: INSULIN ASPART [NOVOLOG] 3 ML PEN SC ×4 (07:46→21:00)
[2018-10-15] MEDS: THIAMINE 100 MG TAB PO (08:20)
[2018-10-15] MEDS: MULTIVITAMINS THERAPEUTIC TAB PO (08:20)
[2018-10-15] MEDS: LINAGLIPTIN 5 MG TABLET PO (08:20)
[2018-10-15] MEDS: FAMOTIDINE 20 MG TAB PO (08:20)
[2018-10-15] MEDS: FOLIC ACID 1 MG TAB PO (08:20)
[2018-10-15] MEDS: POTASSIUM CHLORIDE (SR) 20 MEQ TAB PO (08:21)
[2018-10-15] MEDS: MAGNESIUM SULFATE 2 GM/50 ML 50 ML IVPB (10:52)
[2018-10-15 14:29] LABS: GAD 65 ANTIBODY <5 IU/mL (<5)
[2018-10-15] MEDS: metFORMIN 500 MG TAB PO (17:47)
[2018-10-15 20:47] LABS: ISLET CELL ANTIBODY SCREEN NEGATIVE (NEGATIVE)
[2018-10-15] MEDS: SOD CHLORIDE 0.9% 500 ML IV (22:25)
[2018-10-16] MEDS: LEVOFLOXACIN 500MG/D5W (PMX) 100 ML IVPB (02:07)
[2018-10-16 05:50] LABS: ANION GAP 9 (5-13); BLOOD UREA NITROGEN 11 mg/dl (7-20); CALCIUM 7.5 mg/dl (8.4-10.2); CARBON DIOXIDE 18 mmol/L (21-31); CHLORIDE 105 mmol/L (97-110); CREATININE 1.03 mg/dl (0.61-1.24); Estimated GFR > 60 mL/min (>60); GLUCOSE 104 mg/dl (70-220); MAGNESIUM 1.7 mg/dl (1.7-2.5); PHOSPHORUS 4.4 mg/dl (2.5-4.9); POTASSIUM 3.4 mmol/L (3.5-5.1); SODIUM 132 mmol/L (135-144)
[2018-10-16 06:43] LABS: AMMONIA 23 umol/l (9-30)
[2018-10-16] MEDS: INSULIN ASPART [NOVOLOG] 3 ML PEN SC ×4 (07:59→21:00)
[2018-10-16] MEDS: THIAMINE 100 MG TAB PO (08:08)
[2018-10-16] MEDS: LINAGLIPTIN 5 MG TABLET PO (08:08)
[2018-10-16] MEDS: MULTIVITAMINS THERAPEUTIC TAB PO (08:08)
[2018-10-16] MEDS: FOLIC ACID 1 MG TAB PO (08:08)
[2018-10-16] MEDS: FAMOTIDINE 20 MG TAB PO (08:08)
[2018-10-16] MEDS: POTASSIUM CHLORIDE (SR) 20 MEQ TAB PO (08:09)
[2018-10-16] MEDS: metFORMIN 500 MG TAB PO ×2 (08:09→17:31)
[2018-10-16] MEDS: EMPAGLIFLOZIN 10 MG TABLET PO (10:41)
[2018-10-16 15:50] LABS: ADD MAN DIFF? NO
[2018-10-16 15:52] LABS: WHITE BLOOD COUNT 18.8 10^3/ul (4.8-10.8)
[2018-10-16 15:52] LABS: ABNORMAL IP MESSAGE 1; BASOPHIL # 0.1 10^3/ul (0.0-0.1); BASOPHILS % 0.5 % (0.0-2.0); EOSINOPHILS # 0.2 10^3/ul (0.0-0.5); HEMATOCRIT 28.8 % (42.0-52.0); HEMOGLOBIN 9.7 g/dl (14.0-18.0); LYMPHOCYTES # 2.5 10^3/ul (0.8-2.9); LYMPHOCYTES % 13.4 % (15.0-51.0); MEAN CORPUSCULAR HEMOGLOBIN 30.7 pg (29.0-33.0); MEAN CORPUSCULAR HGB CONC 33.7 g/dl (32.0-37.0); MEAN CORPUSCULAR VOLUME 91.1 fl (82.0-101.0); MEAN PLATELET VOLUME 9.1 fl (7.4-10.4); MONOCYTE # 1.8 10^3/ul (0.3-0.9); MONOCYTES % 9.4 % (0.0-11.0); NEUTROPHIL # 13.8 10^3/ul (1.6-7.5); NEUTROPHILS % 73.6 % (39.0-77.0); PLATELET COUNT 183 10^3/UL (140-415); POSITIVE DIFF @See below; RED BLOOD COUNT 3.16 10^6/ul (4.70-6.10); RED CELL DISTRIBUTION WIDTH 15.7 % (11.5-14.5)
[2018-10-16 16:15] LABS: ANION GAP 8 (5-13); BLOOD UREA NITROGEN 12 mg/dl (7-20); CALCIUM 7.7 mg/dl (8.4-10.2); CARBON DIOXIDE 18 mmol/L (21-31); CHLORIDE 105 mmol/L (97-110); CREATININE 1.07 mg/dl (0.61-1.24); Estimated GFR > 60 mL/min (>60); GLUCOSE 89 mg/dl (70-220); SODIUM 131 mmol/L (135-144)
[2018-10-16 19:16] LABS: INSULIN AUTOANTIBODY <0.4 U/mL (<0.4)
[2018-10-17] MEDS: LEVOFLOXACIN 500MG/D5W (PMX) 100 ML IVPB (01:19)
[2018-10-17 05:19] LABS: ADD MAN DIFF? NO
[2018-10-17 05:22] LABS: WHITE BLOOD COUNT 16.6 10^3/ul (4.8-10.8)
[2018-10-17 05:22] LABS: BASOPHILS % 0.2 % (0.0-2.0); EOSINOPHILS # 0.2 10^3/ul (0.0-0.5); HEMATOCRIT 27.6 % (42.0-52.0); HEMOGLOBIN 9.1 g/dl (14.0-18.0); LYMPHOCYTES # 2.5 10^3/ul (0.8-2.9); LYMPHOCYTES % 15.1 % (15.0-51.0); MEAN CORPUSCULAR VOLUME 91.1 fl (82.0-101.0); MEAN PLATELET VOLUME 9.6 fl (7.4-10.4); MONOCYTE # 1.4 10^3/ul (0.3-0.9); MONOCYTES % 8.2 % (0.0-11.0); NEUTROPHIL # 12.2 10^3/ul (1.6-7.5); NEUTROPHILS % 73.8 % (39.0-77.0); PLATELET COUNT 178 10^3/UL (140-415); RED BLOOD COUNT 3.03 10^6/ul (4.70-6.10); RED CELL DISTRIBUTION WIDTH 15.9 % (11.5-14.5)
[2018-10-17 05:59] LABS: ANION GAP 8 (5-13); BLOOD UREA NITROGEN 12 mg/dl (7-20); CALCIUM 7.6 mg/dl (8.4-10.2); CARBON DIOXIDE 17 mmol/L (21-31); CHLORIDE 106 mmol/L (97-110); CREATININE 1.06 mg/dl (0.61-1.24); Estimated GFR > 60 mL/min (>60); GLUCOSE 129 mg/dl (70-220); MAGNESIUM 1.7 mg/dl (1.7-2.5); PHOSPHORUS 4.8 mg/dl (2.5-4.9); SODIUM 131 mmol/L (135-144)
[2018-10-17 06:01] LABS: POTASSIUM 3.1 mmol/L (3.5-5.1)
[2018-10-17] MEDS: INSULIN ASPART [NOVOLOG] 3 ML PEN SC ×4 (07:34→20:49)
[2018-10-17] MEDS: metFORMIN 500 MG TAB PO ×2 (08:02→17:19)
[2018-10-17] MEDS: FOLIC ACID 1 MG TAB PO (08:02)
[2018-10-17] MEDS: POTASSIUM CHLORIDE (SR) 20 MEQ TAB PO ×2 (08:02→11:48)
[2018-10-17] MEDS: LINAGLIPTIN 5 MG TABLET PO (08:03)
[2018-10-17] MEDS: MULTIVITAMINS THERAPEUTIC TAB PO (08:03)
[2018-10-17] MEDS: THIAMINE 100 MG TAB PO (08:03)
[2018-10-17] MEDS: FAMOTIDINE 20 MG TAB PO (08:03)
[2018-10-17] MEDS: EMPAGLIFLOZIN 10 MG TABLET PO (08:03)
[2018-10-17] MEDS: MAGNESIUM SULFATE 1 GM/D5W 100 ML IVPB (10:36)
[2018-10-18] MEDS: LEVOFLOXACIN 500MG/D5W (PMX) 100 ML IVPB (00:36)
[2018-10-18 05:21] LABS: ADD MAN DIFF? NO
[2018-10-18 05:27] LABS: ABNORMAL IP MESSAGE 1; BASOPHILS % 0.2 % (0.0-2.0); EOSINOPHILS # 0.2 10^3/ul (0.0-0.5); HEMATOCRIT 25.8 % (42.0-52.0); HEMOGLOBIN 8.6 g/dl (14.0-18.0); LYMPHOCYTES # 2.8 10^3/ul (0.8-2.9); LYMPHOCYTES % 16.2 % (15.0-51.0); MEAN CORPUSCULAR HEMOGLOBIN 30.7 pg (29.0-33.0); MEAN CORPUSCULAR HGB CONC 33.3 g/dl (32.0-37.0); MEAN CORPUSCULAR VOLUME 92.1 fl (82.0-101.0); MEAN PLATELET VOLUME 9.3 fl (7.4-10.4); MONOCYTE # 1.6 10^3/ul (0.3-0.9); MONOCYTES % 9.3 % (0.0-11.0); NEUTROPHIL # 12.4 10^3/ul (1.6-7.5); NEUTROPHILS % 72.1 % (39.0-77.0); PLATELET COUNT 210 10^3/UL (140-415); POSITIVE DIFF @See below; RED CELL DISTRIBUTION WIDTH 15.9 % (11.5-14.5)
[2018-10-18 05:27] LABS: WHITE BLOOD COUNT 17.2 10^3/ul (4.8-10.8)
[2018-10-18 05:32] LABS: PHOSPHORUS 5.1 mg/dl (2.5-4.9)
[2018-10-18 05:32] LABS: MAGNESIUM 1.6 mg/dl (1.7-2.5)
[2018-10-18 05:50] LABS: ANION GAP 8 (5-13); BLOOD UREA NITROGEN 12 mg/dl (7-20); CALCIUM 7.7 mg/dl (8.4-10.2); CARBON DIOXIDE 18 mmol/L (21-31); CHLORIDE 107 mmol/L (97-110); CREATININE 1.13 mg/dl (0.61-1.24); Estimated GFR > 60 mL/min (>60); GLUCOSE 103 mg/dl (70-220); POTASSIUM 3.3 mmol/L (3.5-5.1); SODIUM 133 mmol/L (135-144)
[2018-10-18] MEDS: metFORMIN 500 MG TAB PO ×2 (07:35→17:31)
[2018-10-18] MEDS: EMPAGLIFLOZIN 10 MG TABLET PO (07:36)
[2018-10-18] MEDS: INSULIN ASPART [NOVOLOG] 3 ML PEN SC ×4 (07:36→21:00)
[2018-10-18] MEDS: LINAGLIPTIN 5 MG TABLET PO (08:11)
[2018-10-18] MEDS: POTASSIUM CHLORIDE (SR) 20 MEQ TAB PO (08:11)
[2018-10-18] MEDS: MULTIVITAMINS THERAPEUTIC TAB PO (08:11)
[2018-10-18] MEDS: THIAMINE 100 MG TAB PO (08:11)
[2018-10-18] MEDS: FAMOTIDINE 20 MG TAB PO (08:11)
[2018-10-18] MEDS: FOLIC ACID 1 MG TAB PO (08:11)
[2018-10-18] MEDS: MAGNESIUM OXIDE 400 MG TAB PO (09:37)
[2018-10-18] MEDS: MAGNESIUM SULFATE 2 GM/50 ML 50 ML IVPB (09:38)
[2018-10-19] MEDS: traZODone 50 MG TAB PO (00:19)
[2018-10-19] MEDS: LEVOFLOXACIN 500MG/D5W (PMX) 100 ML IVPB (00:19)
[2018-10-19 06:11] LABS: ADD MAN DIFF? NO
[2018-10-19 06:22] LABS: WHITE BLOOD COUNT 15.5 10^3/ul (4.8-10.8)
[2018-10-19 06:22] LABS: BASOPHILS % 0.2 % (0.0-2.0); EOSINOPHILS # 0.2 10^3/ul (0.0-0.5); EOSINOPHILS % 1.2 % (0.0-7.0); HEMATOCRIT 26.3 % (42.0-52.0); HEMOGLOBIN 8.6 g/dl (14.0-18.0); LYMPHOCYTES # 2.4 10^3/ul (0.8-2.9); LYMPHOCYTES % 15.5 % (15.0-51.0); MEAN CORPUSCULAR HGB CONC 32.7 g/dl (32.0-37.0); MEAN CORPUSCULAR VOLUME 91.6 fl (82.0-101.0); MEAN PLATELET VOLUME 9.3 fl (7.4-10.4); MONOCYTE # 1.4 10^3/ul (0.3-0.9); MONOCYTES % 9.1 % (0.0-11.0); NEUTROPHIL # 11.3 10^3/ul (1.6-7.5); PLATELET COUNT 196 10^3/UL (140-415); RED BLOOD COUNT 2.87 10^6/ul (4.70-6.10)
[2018-10-19 06:40] LABS: ANION GAP 8 (5-13); BLOOD UREA NITROGEN 11 mg/dl (7-20); CALCIUM 7.4 mg/dl (8.4-10.2); CARBON DIOXIDE 18 mmol/L (21-31); CHLORIDE 106 mmol/L (97-110); CREATININE 1.08 mg/dl (0.61-1.24); Estimated GFR > 60 mL/min (>60); GLUCOSE 130 mg/dl (70-220); POTASSIUM 3.3 mmol/L (3.5-5.1); SODIUM 132 mmol/L (135-144)
[2018-10-19] MEDS: INSULIN ASPART [NOVOLOG] 3 ML PEN SC ×3 (07:42→17:16)
[2018-10-19] MEDS: LINAGLIPTIN 5 MG TABLET PO (08:14)
[2018-10-19] MEDS: FOLIC ACID 1 MG TAB PO (08:14)
[2018-10-19] MEDS: EMPAGLIFLOZIN 10 MG TABLET PO (08:14)
[2018-10-19] MEDS: MAGNESIUM OXIDE 400 MG TAB PO (08:14)
[2018-10-19] MEDS: THIAMINE 100 MG TAB PO (08:14)
[2018-10-19] MEDS: FAMOTIDINE 20 MG TAB PO (08:14)
[2018-10-19] MEDS: MULTIVITAMINS THERAPEUTIC TAB PO (08:14)
[2018-10-19] MEDS: metFORMIN 500 MG TAB PO ×2 (08:15→17:15)
[2018-10-19] MEDS: POTASSIUM CHLORIDE (SR) 20 MEQ TAB PO (08:15)
[2018-10-19 13:36] LABS: POTASSIUM,URINE RANDOM 20.4 mmol/L (25-125)
== END 2018-10-19 18:27 | disposition home or self-care (01) | DRG 871 ==
LOC: 6WM 10-08 06:29 → FTE 16:28 → ICU 19:52
PROVIDERS: Family Medicine
PROC: 0W9G3ZZ Drainage of Peritoneal Cavity, Percutaneous Approach (ICD-10-PCS; principal; 2018-10-12)
DX: A41.9 Sepsis, unspecified organism (principal); J18.9 Pneumonia, unspecified organism; G93.41 Metabolic encephalopathy; N17.9 Acute kidney failure, unspecified; E87.2 Acidosis; N39.0 Urinary tract infection, site not specified; E87.1 Hypo-osmolality and hyponatremia; E86.0 Dehydration; R65.20 Severe sepsis without septic shock; B96.20 Unspecified Escherichia coli [E. coli] as the cause of diseases classified elsewhere; D63.8 Anemia in other chronic diseases classified elsewhere; D69.59 Other secondary thrombocytopenia; E11.65 Type 2 diabetes mellitus with hyperglycemia; E83.42 Hypomagnesemia; E87.6 Hypokalemia; K72.90 Hepatic failure, unspecified without coma; K70.11 Alcoholic hepatitis with ascites; K70.31 Alcoholic cirrhosis of liver with ascites
CPT/HCPCS: 36415; 36600; 70450; 71045; 76705; 80048; 80053; 80307; 81001; 81003; 82043; 82105; 82140; 82803; 82962; 83036; 83605; 83615; 83690; 83735; 83935; 84100; 84133; 84145; 84153; 84154; 84155; 84157; 84300; 84484; 84681; 85025; 85610; 85730; 86337; 86341; 86703; 87040-91; 87070; 87081; 87086; 87102; 87116; 88104; 88305; 89051; 93005; 93306; 96374; 99285-25

== ENCOUNTER 2018-10-28 19:17 | Inpatient (IN) | payer MEDICAID ==
[2018-10-28 20:18] LABS: ADD MAN DIFF? NO
[2018-10-28 20:22] LABS: BASOPHIL # 0.1 10^3/ul (0.0-0.1); BASOPHILS % 0.8 % (0.0-2.0); EOSINOPHILS # 0.2 10^3/ul (0.0-0.5); EOSINOPHILS % 2.3 % (0.0-7.0); HEMATOCRIT 27.2 % (42.0-52.0); HEMOGLOBIN 9.3 g/dl (14.0-18.0); LYMPHOCYTES # 1.9 10^3/ul (0.8-2.9); MEAN CORPUSCULAR HEMOGLOBIN 29.9 pg (29.0-33.0); MEAN CORPUSCULAR HGB CONC 34.2 g/dl (32.0-37.0); MEAN CORPUSCULAR VOLUME 87.5 fl (82.0-101.0); MEAN PLATELET VOLUME 8.5 fl (7.4-10.4); MONOCYTE # 1.5 10^3/ul (0.3-0.9); MONOCYTES % 15.6 % (0.0-11.0); NEUTROPHIL # 5.7 10^3/ul (1.6-7.5); NEUTROPHILS % 60.9 % (39.0-77.0); PLATELET COUNT 150 10^3/UL (140-415); RED BLOOD COUNT 3.11 10^6/ul (4.70-6.10); RED CELL DISTRIBUTION WIDTH 15.1 % (11.5-14.5)
[2018-10-28 20:22] LABS: WHITE BLOOD COUNT 9.3 10^3/ul (4.8-10.8)
[2018-10-28 20:46] LABS: ALANINE AMINOTRANSFERASE 15 IU/L (13-69); ALBUMIN 2.4 g/dl (3.3-4.9); ALBUMIN/GLOBULIN RATIO 0.51; ALKALINE PHOSPHATASE 227 IU/L (42-121); ANION GAP 11 (5-13); ASPARTATE AMINO TRANSFERASE 42 IU/L (15-46); BILIRUBIN,INDIRECT 0.9 mg/dl (0-1.1); BILIRUBIN,TOTAL 0.9 mg/dl (0.2-1.3); BLOOD UREA NITROGEN 17 mg/dl (7-20); CALCIUM 7.6 mg/dl (8.4-10.2); CARBON DIOXIDE 20 mmol/L (21-31); CHLORIDE 100 mmol/L (97-110); CREATININE 2.73 mg/dl (0.61-1.24); Estimated GFR 26 mL/min (>60); GLUCOSE 53 mg/dl (70-220); INR 1.45; LIPASE 112 U/L (23-300); PROTIME 17.7 Sec (11.9-14.9); PT RATIO 1.4; SODIUM 131 mmol/L (135-144); TOTAL PROTEIN 7.1 g/dl (6.1-8.1)
[2018-10-28 20:49] LABS: POTASSIUM 2.9 mmol/L (3.5-5.1)
[2018-10-28 20:57] LABS: TROPONIN-I < 0.012 ng/ml (0.000-0.120)
[2018-10-28] MEDS: SOD CHLORIDE 0.9% 500 ML IV (21:40)
[2018-10-28] MEDS: POTASSIUM CHLORIDE (SR) 20 MEQ TAB PO (21:52)
[2018-10-28] MEDS: MAGNESIUM SULFATE 1 GM/D5W 100 ML IVPB (21:52)
[2018-10-29] MEDS ORDERED: ACETAMINOPHEN 325 MG TAB PO
[2018-10-29] MEDS ORDERED: ONDANSETRON 4 MG INJ IV ×2 (03:30)
[2018-10-29] MEDS ORDERED: ALBUTEROL/IPRATROPIUM (NEB) 3 ML AMP HHN (03:30)
[2018-10-29] MEDS ORDERED: LORAZEPAM 1 MG TAB PO (03:30)
[2018-10-29] MEDS ORDERED: NACL 0.9% 3 ML SYG IV (03:30)
[2018-10-29] MEDS: POTASSIUM CHLORIDE 100 ML IVPB (03:53)
[2018-10-29 05:36] LABS: ADD MAN DIFF? NO
[2018-10-29 05:41] LABS: WHITE BLOOD COUNT 9.6 10^3/ul (4.8-10.8)
[2018-10-29 05:41] LABS: BASOPHIL # 0.1 10^3/ul (0.0-0.1); BASOPHILS % 0.7 % (0.0-2.0); EOSINOPHILS # 0.2 10^3/ul (0.0-0.5); EOSINOPHILS % 2.2 % (0.0-7.0); HEMATOCRIT 27.6 % (42.0-52.0); HEMOGLOBIN 9.4 g/dl (14.0-18.0); LYMPHOCYTES % 20.5 % (15.0-51.0); MEAN CORPUSCULAR HGB CONC 34.1 g/dl (32.0-37.0); MEAN CORPUSCULAR VOLUME 88.2 fl (82.0-101.0); MEAN PLATELET VOLUME 8.7 fl (7.4-10.4); MONOCYTE # 1.2 10^3/ul (0.3-0.9); MONOCYTES % 12.7 % (0.0-11.0); NEUTROPHIL # 6.1 10^3/ul (1.6-7.5); NEUTROPHILS % 63.3 % (39.0-77.0); PLATELET COUNT 155 10^3/UL (140-415); RED BLOOD COUNT 3.13 10^6/ul (4.70-6.10); RED CELL DISTRIBUTION WIDTH 15.4 % (11.5-14.5)
[2018-10-29 06:00] LABS: ALANINE AMINOTRANSFERASE 17 IU/L (13-69); ALBUMIN 2.4 g/dl (3.3-4.9); ALBUMIN/GLOBULIN RATIO 0.51; ALKALINE PHOSPHATASE 224 IU/L (42-121); ANION GAP 9 (5-13); ASPARTATE AMINO TRANSFERASE 42 IU/L (15-46); BILIRUBIN,INDIRECT 0.9 mg/dl (0-1.1); BILIRUBIN,TOTAL 0.9 mg/dl (0.2-1.3); BLOOD UREA NITROGEN 16 mg/dl (7-20); CALCIUM 7.9 mg/dl (8.4-10.2); CARBON DIOXIDE 23 mmol/L (21-31); CHLORIDE 101 mmol/L (97-110); CREATININE 2.44 mg/dl (0.61-1.24); Estimated GFR 30 mL/min (>60); GLUCOSE 54 mg/dl (70-220); PHOSPHORUS 4.7 mg/dl (2.5-4.9); POTASSIUM 3.8 mmol/L (3.5-5.1); SODIUM 133 mmol/L (135-144); TOTAL PROTEIN 7.1 g/dl (6.1-8.1)
[2018-10-29] MEDS: DEXTROSE 50% 50 ML SYRINGE IV (07:58)
[2018-10-29] MEDS: LIDOCAINE 1% (MPF) 5 ML VIAL (08:52)
[2018-10-29] MEDS: ALBUMIN HUMAN 25% 100 ML IV ×3 (09:01→21:55)
[2018-10-29] MEDS: POTASSIUM CHLORIDE (SR) 20 MEQ TAB PO (09:57)
[2018-10-29] MEDS: FAMOTIDINE 20 MG INJ IV (09:58)
[2018-10-29] MEDS: MAGNESIUM OXIDE 400 MG TAB PO (09:58)
[2018-10-29] MEDS: FERROUS SULFATE (EC) 325 MG TAB PO (09:58)
[2018-10-29 12:41] LABS: ADD UMIC YES; UR ASCORBIC ACID NEGATIVE (NEGATIVE); UR BACTERIA FEW /HPF (NONE SEEN); UR BILIRUBIN (Dip) NEGATIVE (NEGATIVE); UR BLOOD (Dip) NEGATIVE (NEGATIVE); UR CLARITY CLEAR (CLEAR); UR COLOR YELLOW (YELLOW); UR GLUCOSE (Dip) 2+ mg/dL (NEGATIVE); UR KETONES (Dip) NEGATIVE (NEGATIVE); UR LEUKOCYTE ESTERASE (Dip) TRACE Leu/ul (NEGATIVE); UR NITRITE (Dip) NEGATIVE (NEGATIVE); UR RBC 1 /HPF (0-5); UR SPECIFIC GRAVITY (Dip) 1.009 (1.003-1.030); UR TOTAL PROTEIN (Dip) NEGATIVE (NEGATIVE); UR UROBILINOGEN (Dip) NEGATIVE (NEGATIVE); UR WBC 12 /HPF (0-5)
[2018-10-29 13:28] LABS: CREATININE,URINE RANDOM 68.98 mg/dl (20-370)
[2018-10-29 13:39] LABS: SODIUM,URINE RANDOM < 13 mmol/L (30-90)
[2018-10-29] MEDS ORDERED: GLUCOSE GEL 15 GRAM TUBE PO ×2 (14:30)
[2018-10-29] MEDS ORDERED: GLUCOSE GEL 15 GRAM TUBE BUCCAL (14:30)
[2018-10-29] MEDS ORDERED: GLUCAGON 1 MG INJ IM (14:30)
[2018-10-29] MEDS ORDERED: DEXTROSE 50% 50 ML SYRINGE IV ×2 (14:30)
[2018-10-29] MEDS: THIAMINE 100 MG TAB PO (15:01)
[2018-10-29] MEDS: SOD CHLORIDE 0.9% 1,000 ML IV (16:35)
[2018-10-29] MEDS ORDERED: INSULIN ASPART [NOVOLOG] 3 ML PEN SC (17:00)
[2018-10-29] MEDS: INSULIN ASPART [NOVOLOG] 3 ML PEN SC ×2 (17:35→21:00)
[2018-10-30] MEDS: ACCU-CHEK XX (02:00)
[2018-10-30] MEDS: MIDODRINE 5 MG TAB PO (06:03)
[2018-10-30] MEDS: ALBUMIN HUMAN 25% 100 ML IV ×3 (06:04→16:10)
[2018-10-30] MEDS: SOD CHLORIDE 0.9% 1,000 ML IV ×2 (06:04→20:31)
[2018-10-30 06:56] LABS: ADD MAN DIFF? NO
[2018-10-30 07:20] LABS: WHITE BLOOD COUNT 6.7 10^3/ul (4.8-10.8)
[2018-10-30 07:20] LABS: ABNORMAL IP MESSAGE 1; BASOPHILS % 0.6 % (0.0-2.0); EOSINOPHILS # 0.2 10^3/ul (0.0-0.5); EOSINOPHILS % 2.4 % (0.0-7.0); HEMATOCRIT 21.7 % (42.0-52.0); HEMOGLOBIN 7.4 g/dl (14.0-18.0); LYMPHOCYTES # 1.8 10^3/ul (0.8-2.9); LYMPHOCYTES % 26.3 % (15.0-51.0); MEAN CORPUSCULAR HEMOGLOBIN 30.5 pg (29.0-33.0); MEAN CORPUSCULAR HGB CONC 34.1 g/dl (32.0-37.0); MEAN CORPUSCULAR VOLUME 89.3 fl (82.0-101.0); MEAN PLATELET VOLUME 8.7 fl (7.4-10.4); MONOCYTES % 15.4 % (0.0-11.0); NEUTROPHIL # 3.7 10^3/ul (1.6-7.5); NEUTROPHILS % 54.9 % (39.0-77.0); PLATELET COUNT 93 10^3/UL (140-415); POSITIVE DIFF @See below; RED BLOOD COUNT 2.43 10^6/ul (4.70-6.10); RED CELL DISTRIBUTION WIDTH 14.8 % (11.5-14.5)
[2018-10-30] MEDS: INSULIN ASPART [NOVOLOG] 3 ML PEN SC ×4 (07:43→20:31)
[2018-10-30 08:16] LABS: ANION GAP 6 (5-13); BLOOD UREA NITROGEN 11 mg/dl (7-20); CALCIUM 7.7 mg/dl (8.4-10.2); CARBON DIOXIDE 25 mmol/L (21-31); CHLORIDE 107 mmol/L (97-110); CREATININE 1.72 mg/dl (0.61-1.24); Estimated GFR 45 mL/min (>60); GLUCOSE 86 mg/dl (70-220); MAGNESIUM 1.8 mg/dl (1.7-2.5); PHOSPHORUS 3.4 mg/dl (2.5-4.9); POTASSIUM 3.6 mmol/L (3.5-5.1); SODIUM 138 mmol/L (135-144)
[2018-10-30] MEDS: POTASSIUM CHLORIDE (SR) 20 MEQ TAB PO (09:24)
[2018-10-30] MEDS: FERROUS SULFATE (EC) 325 MG TAB PO (09:24)
[2018-10-30] MEDS: MAGNESIUM OXIDE 400 MG TAB PO (09:24)
[2018-10-30] MEDS: THIAMINE 100 MG TAB PO (09:25)
[2018-10-30] MEDS: FAMOTIDINE 20 MG INJ IV (09:25)
[2018-10-30 10:21] LABS: HEMOGLOBIN A1C 6.3 % (0-5.9)
[2018-10-30] MEDS: ACETAMINOPHEN 325 MG TAB PO (22:16)
[2018-10-31] MEDS: ALBUMIN HUMAN 25% 100 ML IV (00:37)
[2018-10-31] MEDS: ACCU-CHEK XX (02:00)
[2018-10-31 05:35] LABS: PROTIME 19.1 Sec (11.9-14.9); PT RATIO 1.5
[2018-10-31 05:37] LABS: MAGNESIUM 1.7 mg/dl (1.7-2.5)
[2018-10-31 05:37] LABS: PHOSPHORUS 3.2 mg/dl (2.5-4.9)
[2018-10-31 05:40] LABS: ANION GAP 7 (5-13); BLOOD UREA NITROGEN 9 mg/dl (7-20); CALCIUM 7.8 mg/dl (8.4-10.2); CARBON DIOXIDE 24 mmol/L (21-31); CHLORIDE 110 mmol/L (97-110); CREATININE 1.42 mg/dl (0.61-1.24); Estimated GFR 56 mL/min (>60); GLUCOSE 97 mg/dl (70-220); POTASSIUM 3.6 mmol/L (3.5-5.1); SODIUM 141 mmol/L (135-144)
[2018-10-31] MEDS: INSULIN ASPART [NOVOLOG] 3 ML PEN SC ×4 (08:40→20:40)
[2018-10-31] MEDS: THIAMINE 100 MG TAB PO (08:58)
[2018-10-31] MEDS: MAGNESIUM OXIDE 400 MG TAB PO ×2 (08:58→20:40)
[2018-10-31] MEDS: FERROUS SULFATE (EC) 325 MG TAB PO (08:58)
[2018-10-31] MEDS: FAMOTIDINE 20 MG INJ IV (08:58)
[2018-10-31] MEDS: POTASSIUM CHLORIDE (SR) 20 MEQ TAB PO (08:58)
[2018-10-31] MEDS: SOD CHLORIDE 0.9% 1,000 ML IV ×2 (09:00→16:05)
[2018-10-31] MEDS: FAMOTIDINE 20 MG TAB PO (20:40)
[2018-10-31] MEDS: ACETAMINOPHEN 325 MG TAB PO (21:16)
[2018-11-01] MEDS: ACCU-CHEK XX (02:00)
[2018-11-01 05:08] LABS: ADD MAN DIFF? NO
[2018-11-01 05:13] LABS: WHITE BLOOD COUNT 6.4 10^3/ul (4.8-10.8)
[2018-11-01 05:13] LABS: ABNORMAL IP MESSAGE 1; BASOPHIL # 0.1 10^3/ul (0.0-0.1); BASOPHILS % 0.8 % (0.0-2.0); EOSINOPHILS # 0.2 10^3/ul (0.0-0.5); EOSINOPHILS % 3.7 % (0.0-7.0); HEMATOCRIT 23.8 % (42.0-52.0); LYMPHOCYTES # 1.9 10^3/ul (0.8-2.9); LYMPHOCYTES % 29.5 % (15.0-51.0); MEAN CORPUSCULAR HEMOGLOBIN 29.7 pg (29.0-33.0); MEAN CORPUSCULAR HGB CONC 33.6 g/dl (32.0-37.0); MEAN CORPUSCULAR VOLUME 88.5 fl (82.0-101.0); MEAN PLATELET VOLUME 8.6 fl (7.4-10.4); MONOCYTES % 14.8 % (0.0-11.0); NEUTROPHIL # 3.3 10^3/ul (1.6-7.5); NEUTROPHILS % 50.7 % (39.0-77.0); PLATELET COUNT 94 10^3/UL (140-415); POSITIVE DIFF @See below; RED BLOOD COUNT 2.69 10^6/ul (4.70-6.10); RED CELL DISTRIBUTION WIDTH 14.8 % (11.5-14.5)
[2018-11-01] MEDS: ACETAMINOPHEN 325 MG TAB PO (05:27)
[2018-11-01 05:47] LABS: ANION GAP 6 (5-13); BLOOD UREA NITROGEN 8 mg/dl (7-20); CALCIUM 8.1 mg/dl (8.4-10.2); CARBON DIOXIDE 23 mmol/L (21-31); CHLORIDE 111 mmol/L (97-110); CREATININE 1.33 mg/dl (0.61-1.24); Estimated GFR > 60 mL/min (>60); GLUCOSE 86 mg/dl (70-220); MAGNESIUM 1.5 mg/dl (1.7-2.5); PHOSPHORUS 4.1 mg/dl (2.5-4.9); POTASSIUM 3.9 mmol/L (3.5-5.1); SODIUM 140 mmol/L (135-144)
[2018-11-01] MEDS ORDERED: MAGNESIUM SULFATE 2 GM/50 ML 50 ML IVPB (08:00)
[2018-11-01] MEDS: INSULIN ASPART [NOVOLOG] 3 ML PEN SC ×4 (08:40→20:37)
[2018-11-01] MEDS: POTASSIUM CHLORIDE (SR) 20 MEQ TAB PO (09:18)
[2018-11-01] MEDS: MAGNESIUM OXIDE 400 MG TAB PO ×3 (09:18→20:37)
[2018-11-01] MEDS: THIAMINE 100 MG TAB PO (09:18)
[2018-11-01] MEDS: FERROUS SULFATE (EC) 325 MG TAB PO (09:18)
[2018-11-01] MEDS: MAGNESIUM SULFATE 2 GM/50 ML 50 ML IVPB (09:19)
[2018-11-01 14:27] LABS: CREATININE, RANDOM URINE 70 mg/dL (20-320); MICROALBUMIN 1.8 mg/dL; MICROALBUMIN/CREATININE RATIO 26 (<30)
[2018-11-01] MEDS: FAMOTIDINE 20 MG TAB PO (20:37)
[2018-11-02] MEDS: ACCU-CHEK XX (02:00)
[2018-11-02 05:27] LABS: ADD MAN DIFF? NO
[2018-11-02 05:28] LABS: BASOPHIL # 0.1 10^3/ul (0.0-0.1); BASOPHILS % 0.9 % (0.0-2.0); EOSINOPHILS # 0.3 10^3/ul (0.0-0.5); EOSINOPHILS % 3.6 % (0.0-7.0); HEMATOCRIT 25.8 % (42.0-52.0); HEMOGLOBIN 8.6 g/dl (14.0-18.0); LYMPHOCYTES # 2.6 10^3/ul (0.8-2.9); LYMPHOCYTES % 29.5 % (15.0-51.0); MEAN CORPUSCULAR HEMOGLOBIN 29.9 pg (29.0-33.0); MEAN CORPUSCULAR HGB CONC 33.3 g/dl (32.0-37.0); MEAN CORPUSCULAR VOLUME 89.6 fl (82.0-101.0); MEAN PLATELET VOLUME 9.2 fl (7.4-10.4); MONOCYTE # 1.1 10^3/ul (0.3-0.9); NEUTROPHIL # 4.6 10^3/ul (1.6-7.5); NEUTROPHILS % 52.7 % (39.0-77.0); PLATELET COUNT 118 10^3/UL (140-415); RED BLOOD COUNT 2.88 10^6/ul (4.70-6.10); RED CELL DISTRIBUTION WIDTH 14.6 % (11.5-14.5)
[2018-11-02 05:28] LABS: WHITE BLOOD COUNT 8.6 10^3/ul (4.8-10.8)
[2018-11-02 06:31] LABS: ALANINE AMINOTRANSFERASE 25 IU/L (13-69); ALBUMIN 2.9 g/dl (3.3-4.9); ALBUMIN/GLOBULIN RATIO 0.76; ALKALINE PHOSPHATASE 175 IU/L (42-121); ANION GAP 6 (5-13); ASPARTATE AMINO TRANSFERASE 80 IU/L (15-46); BILIRUBIN,INDIRECT 0.8 mg/dl (0-1.1); BILIRUBIN,TOTAL 0.8 mg/dl (0.2-1.3); BLOOD UREA NITROGEN 10 mg/dl (7-20); CALCIUM 8.4 mg/dl (8.4-10.2); CARBON DIOXIDE 25 mmol/L (21-31); CHLORIDE 108 mmol/L (97-110); CREATININE 1.33 mg/dl (0.61-1.24); Estimated GFR > 60 mL/min (>60); GLUCOSE 102 mg/dl (70-220); POTASSIUM 4.3 mmol/L (3.5-5.1); SODIUM 139 mmol/L (135-144); TOTAL PROTEIN 6.7 g/dl (6.1-8.1)
[2018-11-02] MEDS: INSULIN ASPART [NOVOLOG] 3 ML PEN SC ×4 (07:50→20:11)
[2018-11-02] MEDS: THIAMINE 100 MG TAB PO (08:29)
[2018-11-02] MEDS: POTASSIUM CHLORIDE (SR) 20 MEQ TAB PO (08:29)
[2018-11-02] MEDS: FOLIC ACID 1 MG TAB PO (08:29)
[2018-11-02] MEDS: MAGNESIUM OXIDE 400 MG TAB PO ×3 (08:29→20:11)
[2018-11-02] MEDS: FERROUS SULFATE (EC) 325 MG TAB PO (08:29)
[2018-11-02] MEDS: FUROSEMIDE 20 MG TAB PO (15:32)
[2018-11-02] MEDS: COSYNTROPIN 0.25 MG INJ IV (15:32)
[2018-11-02] MEDS: FAMOTIDINE 20 MG TAB PO (20:11)
[2018-11-03] MEDS: ACCU-CHEK XX (01:31)
[2018-11-03 05:36] LABS: ANION GAP 8 (5-13); BLOOD UREA NITROGEN 14 mg/dl (7-20); CALCIUM 8.4 mg/dl (8.4-10.2); CARBON DIOXIDE 24 mmol/L (21-31); CHLORIDE 109 mmol/L (97-110); CREATININE 1.14 mg/dl (0.61-1.24); Estimated GFR > 60 mL/min (>60); GLUCOSE 94 mg/dl (70-220); MAGNESIUM 1.6 mg/dl (1.7-2.5); PHOSPHORUS 5.2 mg/dl (2.5-4.9); POTASSIUM 3.9 mmol/L (3.5-5.1); SODIUM 141 mmol/L (135-144)
[2018-11-03] MEDS: INSULIN ASPART [NOVOLOG] 3 ML PEN SC ×4 (07:50→20:26)
[2018-11-03] MEDS: FERROUS SULFATE (EC) 325 MG TAB PO (08:34)
[2018-11-03] MEDS: FUROSEMIDE 20 MG TAB PO (08:34)
[2018-11-03] MEDS: FOLIC ACID 1 MG TAB PO (08:34)
[2018-11-03] MEDS: MAGNESIUM OXIDE 400 MG TAB PO ×3 (08:34→20:24)
[2018-11-03] MEDS: THIAMINE 100 MG TAB PO (08:35)
[2018-11-03] MEDS: POTASSIUM CHLORIDE (SR) 20 MEQ TAB PO (08:35)
[2018-11-03] MEDS: MAGNESIUM SULFATE 2 GM/50 ML 50 ML IVPB ×2 (08:35→18:10)
[2018-11-03] MEDS: SPIRONOLACTONE 50 MG TAB PO (18:40)
[2018-11-03] MEDS: HYDROCORTISONE 5 MG TAB PO (18:41)
[2018-11-03] MEDS: FAMOTIDINE 20 MG TAB PO (20:24)
[2018-11-04] MEDS: ACCU-CHEK XX (01:10)
[2018-11-04 05:09] LABS: ADD MAN DIFF? NO
[2018-11-04 05:10] LABS: BASOPHIL # 0.1 10^3/ul (0.0-0.1); BASOPHILS % 0.9 % (0.0-2.0); EOSINOPHILS % 0.4 % (0.0-7.0); HEMATOCRIT 24.4 % (42.0-52.0); HEMOGLOBIN 8.4 g/dl (14.0-18.0); LYMPHOCYTES # 1.6 10^3/ul (0.8-2.9); LYMPHOCYTES % 17.4 % (15.0-51.0); MEAN CORPUSCULAR HEMOGLOBIN 30.4 pg (29.0-33.0); MEAN CORPUSCULAR HGB CONC 34.4 g/dl (32.0-37.0); MEAN CORPUSCULAR VOLUME 88.4 fl (82.0-101.0); MEAN PLATELET VOLUME 8.9 fl (7.4-10.4); MONOCYTE # 0.9 10^3/ul (0.3-0.9); NEUTROPHIL # 6.4 10^3/ul (1.6-7.5); NEUTROPHILS % 70.9 % (39.0-77.0); PLATELET COUNT 118 10^3/UL (140-415); RED BLOOD COUNT 2.76 10^6/ul (4.70-6.10); RED CELL DISTRIBUTION WIDTH 14.5 % (11.5-14.5)
[2018-11-04 05:36] LABS: ANION GAP 7 (5-13); BLOOD UREA NITROGEN 16 mg/dl (7-20); CARBON DIOXIDE 25 mmol/L (21-31); CHLORIDE 110 mmol/L (97-110); CREATININE 1.12 mg/dl (0.61-1.24); Estimated GFR > 60 mL/min (>60); GLUCOSE 122 mg/dl (70-220); POTASSIUM 4.5 mmol/L (3.5-5.1); SODIUM 142 mmol/L (135-144)
[2018-11-04 05:38] LABS: MAGNESIUM 1.8 mg/dl (1.7-2.5)
[2018-11-04] MEDS: HYDROCORTISONE 20 MG TAB PO (06:39)
[2018-11-04] MEDS: INSULIN ASPART [NOVOLOG] 3 ML PEN SC ×4 (08:27→20:35)
[2018-11-04] MEDS: POTASSIUM CHLORIDE (SR) 20 MEQ TAB PO (08:28)
[2018-11-04] MEDS: FERROUS SULFATE (EC) 325 MG TAB PO (08:29)
[2018-11-04] MEDS: MAGNESIUM OXIDE 400 MG TAB PO ×3 (08:29→20:35)
[2018-11-04] MEDS: FOLIC ACID 1 MG TAB PO (08:29)
[2018-11-04] MEDS: THIAMINE 100 MG TAB PO (08:29)
[2018-11-04] MEDS: FUROSEMIDE 20 MG TAB PO (08:30)
[2018-11-04] MEDS: SPIRONOLACTONE 50 MG TAB PO (08:30)
[2018-11-04] MEDS: HYDROCORTISONE 5 MG TAB PO (17:48)
[2018-11-04] MEDS: FAMOTIDINE 20 MG TAB PO (20:35)
[2018-11-05] MEDS: ACCU-CHEK XX (01:58)
[2018-11-05 05:35] LABS: ANION GAP 9 (5-13); BLOOD UREA NITROGEN 21 mg/dl (7-20); CALCIUM 9.1 mg/dl (8.4-10.2); CARBON DIOXIDE 24 mmol/L (21-31); CHLORIDE 111 mmol/L (97-110); CREATININE 1.32 mg/dl (0.61-1.24); Estimated GFR > 60 mL/min (>60); GLUCOSE 121 mg/dl (70-220); POTASSIUM 3.9 mmol/L (3.5-5.1); SODIUM 144 mmol/L (135-144)
[2018-11-05] MEDS: HYDROCORTISONE 20 MG TAB PO (07:02)
[2018-11-05] MEDS: INSULIN ASPART [NOVOLOG] 3 ML PEN SC ×4 (07:50→21:00)
[2018-11-05] MEDS: FERROUS SULFATE (EC) 325 MG TAB PO (08:50)
[2018-11-05] MEDS: metFORMIN 500 MG TAB PO ×2 (08:50→17:27)
[2018-11-05] MEDS: SPIRONOLACTONE 50 MG TAB PO (08:50)
[2018-11-05] MEDS: MAGNESIUM OXIDE 400 MG TAB PO ×3 (08:50→20:46)
[2018-11-05] MEDS: POTASSIUM CHLORIDE (SR) 20 MEQ TAB PO (08:50)
[2018-11-05] MEDS: FOLIC ACID 1 MG TAB PO (08:51)
[2018-11-05] MEDS: THIAMINE 100 MG TAB PO (08:51)
[2018-11-05] MEDS: FUROSEMIDE 20 MG TAB PO (08:51)
[2018-11-05] MEDS: HYDROCORTISONE 5 MG TAB PO (17:29)
[2018-11-05] MEDS: FAMOTIDINE 20 MG TAB PO (20:46)
[2018-11-06] MEDS: ACCU-CHEK XX ×2 (02:00→20:21)
[2018-11-06 05:52] LABS: ANION GAP 7 (5-13); BLOOD UREA NITROGEN 23 mg/dl (7-20); CALCIUM 8.9 mg/dl (8.4-10.2); CARBON DIOXIDE 25 mmol/L (21-31); CHLORIDE 111 mmol/L (97-110); CREATININE 1.14 mg/dl (0.61-1.24); Estimated GFR > 60 mL/min (>60); GLUCOSE 147 mg/dl (70-220); MAGNESIUM 1.8 mg/dl (1.7-2.5); PHOSPHORUS 3.1 mg/dl (2.5-4.9); POTASSIUM 3.8 mmol/L (3.5-5.1); SODIUM 143 mmol/L (135-144)
[2018-11-06] MEDS: HYDROCORTISONE 20 MG TAB PO (06:53)
[2018-11-06] MEDS: INSULIN ASPART [NOVOLOG] 3 ML PEN SC ×4 (07:50→20:13)
[2018-11-06] MEDS: metFORMIN 500 MG TAB PO ×2 (08:19→17:34)
[2018-11-06] MEDS: POTASSIUM CHLORIDE (SR) 20 MEQ TAB PO (08:19)
[2018-11-06] MEDS: THIAMINE 100 MG TAB PO (08:19)
[2018-11-06] MEDS: EMPAGLIFLOZIN 10 MG TABLET PO (08:20)
[2018-11-06] MEDS: FERROUS SULFATE (EC) 325 MG TAB PO (08:20)
[2018-11-06] MEDS: MAGNESIUM OXIDE 400 MG TAB PO ×3 (08:20→20:12)
[2018-11-06] MEDS: SPIRONOLACTONE 50 MG TAB PO (08:20)
[2018-11-06] MEDS: LINAGLIPTIN 5 MG TABLET PO (08:20)
[2018-11-06] MEDS: FUROSEMIDE 20 MG TAB PO (08:20)
[2018-11-06] MEDS: FOLIC ACID 1 MG TAB PO (08:20)
[2018-11-06] MEDS: HYDROCORTISONE 5 MG TAB PO (17:34)
[2018-11-06] MEDS: FAMOTIDINE 20 MG TAB PO (20:12)
[2018-11-07 04:58] LABS: ADD MAN DIFF? NO
[2018-11-07 05:22] LABS: BASOPHIL # 0.1 10^3/ul (0.0-0.1); EOSINOPHILS # 0.1 10^3/ul (0.0-0.5); EOSINOPHILS % 0.6 % (0.0-7.0); HEMATOCRIT 25.2 % (42.0-52.0); LYMPHOCYTES # 2.3 10^3/ul (0.8-2.9); LYMPHOCYTES % 18.7 % (15.0-51.0); MEAN CORPUSCULAR HEMOGLOBIN 30.2 pg (29.0-33.0); MEAN CORPUSCULAR HGB CONC 31.7 g/dl (32.0-37.0); MEAN CORPUSCULAR VOLUME 95.1 fl (82.0-101.0); MEAN PLATELET VOLUME 9.3 fl (7.4-10.4); MONOCYTE # 1.2 10^3/ul (0.3-0.9); MONOCYTES % 9.6 % (0.0-11.0); NEUTROPHIL # 8.6 10^3/ul (1.6-7.5); NEUTROPHILS % 69.3 % (39.0-77.0); PLATELET COUNT 144 10^3/UL (140-415); RED BLOOD COUNT 2.65 10^6/ul (4.70-6.10); RED CELL DISTRIBUTION WIDTH 15.1 % (11.5-14.5)
[2018-11-07 05:22] LABS: WHITE BLOOD COUNT 12.5 10^3/ul (4.8-10.8)
[2018-11-07 05:29] LABS: ALANINE AMINOTRANSFERASE 20 IU/L (13-69); ALBUMIN 3.4 g/dl (3.3-4.9); ALKALINE PHOSPHATASE 163 IU/L (42-121); ANION GAP 8 (5-13); ASPARTATE AMINO TRANSFERASE 41 IU/L (15-46); BILIRUBIN,INDIRECT 0.4 mg/dl (0-1.1); BILIRUBIN,TOTAL 0.4 mg/dl (0.2-1.3); BLOOD UREA NITROGEN 26 mg/dl (7-20); CALCIUM 9.1 mg/dl (8.4-10.2); CARBON DIOXIDE 24 mmol/L (21-31); CHLORIDE 114 mmol/L (97-110); CREATININE 1.01 mg/dl (0.61-1.24); Estimated GFR > 60 mL/min (>60); GLUCOSE 135 mg/dl (70-220); POTASSIUM 3.8 mmol/L (3.5-5.1); SODIUM 146 mmol/L (135-144); TOTAL PROTEIN 7.6 g/dl (6.1-8.1)
[2018-11-07 05:44] LABS: PHOSPHORUS 3.2 mg/dl (2.5-4.9)
[2018-11-07 05:44] LABS: MAGNESIUM 1.8 mg/dl (1.7-2.5)
[2018-11-07] MEDS: HYDROCORTISONE 20 MG TAB PO (06:29)
[2018-11-07] MEDS: THIAMINE 100 MG TAB PO (08:36)
[2018-11-07] MEDS: SPIRONOLACTONE 50 MG TAB PO (08:36)
[2018-11-07] MEDS: FOLIC ACID 1 MG TAB PO (08:36)
[2018-11-07] MEDS: metFORMIN 500 MG TAB PO ×2 (08:36→17:41)
[2018-11-07] MEDS: LINAGLIPTIN 5 MG TABLET PO (08:36)
[2018-11-07] MEDS: FUROSEMIDE 20 MG TAB PO (08:37)
[2018-11-07] MEDS: POTASSIUM CHLORIDE (SR) 20 MEQ TAB PO (08:37)
[2018-11-07] MEDS: FERROUS SULFATE (EC) 325 MG TAB PO (08:37)
[2018-11-07] MEDS: EMPAGLIFLOZIN 10 MG TABLET PO (08:37)
[2018-11-07] MEDS: MAGNESIUM OXIDE 400 MG TAB PO ×3 (08:37→20:23)
[2018-11-07] MEDS: INSULIN ASPART [NOVOLOG] 3 ML PEN SC ×4 (08:38→20:23)
[2018-11-07] MEDS: HYDROCORTISONE 5 MG TAB PO (17:42)
[2018-11-07] MEDS: ACCU-CHEK XX (20:23)
[2018-11-07] MEDS: FAMOTIDINE 20 MG TAB PO (20:23)
[2018-11-08 05:26] LABS: ADD MAN DIFF? NO
[2018-11-08 05:27] LABS: ABNORMAL IP MESSAGE 1; BASOPHIL # 0.1 10^3/ul (0.0-0.1); BASOPHILS % 0.9 % (0.0-2.0); EOSINOPHILS # 0.1 10^3/ul (0.0-0.5); HEMATOCRIT 25.2 % (42.0-52.0); LYMPHOCYTES # 2.8 10^3/ul (0.8-2.9); LYMPHOCYTES % 20.9 % (15.0-51.0); MEAN CORPUSCULAR HEMOGLOBIN 30.4 pg (29.0-33.0); MEAN CORPUSCULAR HGB CONC 31.7 g/dl (32.0-37.0); MEAN CORPUSCULAR VOLUME 95.8 fl (82.0-101.0); MEAN PLATELET VOLUME 9.6 fl (7.4-10.4); MONOCYTE # 1.5 10^3/ul (0.3-0.9); MONOCYTES % 11.4 % (0.0-11.0); NEUTROPHIL # 8.6 10^3/ul (1.6-7.5); NEUTROPHILS % 64.6 % (39.0-77.0); PLATELET COUNT 163 10^3/UL (140-415); POSITIVE DIFF @See below; RED BLOOD COUNT 2.63 10^6/ul (4.70-6.10); RED CELL DISTRIBUTION WIDTH 15.3 % (11.5-14.5)
[2018-11-08 05:27] LABS: WHITE BLOOD COUNT 13.3 10^3/ul (4.8-10.8)
[2018-11-08 06:07] LABS: PHOSPHORUS 3.3 mg/dl (2.5-4.9)
[2018-11-08 06:07] LABS: MAGNESIUM 1.9 mg/dl (1.7-2.5)
[2018-11-08 06:15] LABS: ALANINE AMINOTRANSFERASE 29 IU/L (13-69); ALBUMIN 3.5 g/dl (3.3-4.9); ALBUMIN/GLOBULIN RATIO 0.81; ALKALINE PHOSPHATASE 176 IU/L (42-121); ANION GAP 8 (5-13); ASPARTATE AMINO TRANSFERASE 44 IU/L (15-46); BILIRUBIN,INDIRECT 0.4 mg/dl (0-1.1); BILIRUBIN,TOTAL 0.4 mg/dl (0.2-1.3); BLOOD UREA NITROGEN 25 mg/dl (7-20); CALCIUM 9.1 mg/dl (8.4-10.2); CARBON DIOXIDE 26 mmol/L (21-31); CHLORIDE 113 mmol/L (97-110); CREATININE 1.11 mg/dl (0.61-1.24); Estimated GFR > 60 mL/min (>60); GLUCOSE 101 mg/dl (70-220); POTASSIUM 3.8 mmol/L (3.5-5.1); SODIUM 147 mmol/L (135-144); TOTAL PROTEIN 7.8 g/dl (6.1-8.1)
[2018-11-08] MEDS: HYDROCORTISONE 5 MG TAB PO ×2 (06:33→17:34)
[2018-11-08] MEDS: INSULIN ASPART [NOVOLOG] 3 ML PEN SC ×4 (07:50→21:00)
[2018-11-08] MEDS: FERROUS SULFATE (EC) 325 MG TAB PO (08:26)
[2018-11-08] MEDS: metFORMIN 500 MG TAB PO ×2 (08:27→17:34)
[2018-11-08] MEDS: LINAGLIPTIN 5 MG TABLET PO (08:27)
[2018-11-08] MEDS: FOLIC ACID 1 MG TAB PO (08:27)
[2018-11-08] MEDS: SPIRONOLACTONE 50 MG TAB PO (08:27)
[2018-11-08] MEDS: MAGNESIUM OXIDE 400 MG TAB PO ×3 (08:27→22:02)
[2018-11-08] MEDS: THIAMINE 100 MG TAB PO (08:27)
[2018-11-08] MEDS: EMPAGLIFLOZIN 10 MG TABLET PO (08:27)
[2018-11-08] MEDS: FUROSEMIDE 20 MG TAB PO (08:27)
[2018-11-08] MEDS: POTASSIUM CHLORIDE (SR) 20 MEQ TAB PO (08:28)
[2018-11-08] MEDS: FAMOTIDINE 20 MG TAB PO (22:02)
[2018-11-09] MEDS: ACCU-CHEK XX (02:00)
[2018-11-09 04:48] LABS: ADD MAN DIFF? NO
[2018-11-09 04:50] LABS: WHITE BLOOD COUNT 17.7 10^3/ul (4.8-10.8)
[2018-11-09 04:50] LABS: ABNORMAL IP MESSAGE 1; BASOPHIL # 0.2 10^3/ul (0.0-0.1); EOSINOPHILS # 0.2 10^3/ul (0.0-0.5); EOSINOPHILS % 1.2 % (0.0-7.0); HEMOGLOBIN 8.9 g/dl (14.0-18.0); LYMPHOCYTES # 3.4 10^3/ul (0.8-2.9); LYMPHOCYTES % 19.3 % (15.0-51.0); MEAN CORPUSCULAR HEMOGLOBIN 30.8 pg (29.0-33.0); MEAN CORPUSCULAR VOLUME 93.4 fl (82.0-101.0); MEAN PLATELET VOLUME 9.1 fl (7.4-10.4); MONOCYTE # 2.1 10^3/ul (0.3-0.9); MONOCYTES % 11.8 % (0.0-11.0); NEUTROPHIL # 11.5 10^3/ul (1.6-7.5); NEUTROPHILS % 64.9 % (39.0-77.0); PLATELET COUNT 190 10^3/UL (140-415); POSITIVE DIFF @See below; RED BLOOD COUNT 2.89 10^6/ul (4.70-6.10); RED CELL DISTRIBUTION WIDTH 15.4 % (11.5-14.5)
[2018-11-09 05:11] LABS: ALANINE AMINOTRANSFERASE 31 IU/L (13-69); ALBUMIN 3.8 g/dl (3.3-4.9); ALBUMIN/GLOBULIN RATIO 0.77; ALKALINE PHOSPHATASE 178 IU/L (42-121); ANION GAP 10 (5-13); ASPARTATE AMINO TRANSFERASE 42 IU/L (15-46); BILIRUBIN,INDIRECT 0.4 mg/dl (0-1.1); BILIRUBIN,TOTAL 0.4 mg/dl (0.2-1.3); BLOOD UREA NITROGEN 30 mg/dl (7-20); CALCIUM 9.8 mg/dl (8.4-10.2); CARBON DIOXIDE 23 mmol/L (21-31); CHLORIDE 111 mmol/L (97-110); CREATININE 1.14 mg/dl (0.61-1.24); Estimated GFR > 60 mL/min (>60); GLUCOSE 82 mg/dl (70-220); POTASSIUM 4.3 mmol/L (3.5-5.1); SODIUM 144 mmol/L (135-144); TOTAL PROTEIN 8.7 g/dl (6.1-8.1)
[2018-11-09] MEDS: HYDROCORTISONE 5 MG TAB PO ×2 (06:42→18:02)
[2018-11-09] MEDS: INSULIN ASPART [NOVOLOG] 3 ML PEN SC ×3 (07:50→17:55)
[2018-11-09] MEDS: metFORMIN 500 MG TAB PO ×2 (08:37→18:01)
[2018-11-09] MEDS: THIAMINE 100 MG TAB PO (08:39)
[2018-11-09] MEDS: EMPAGLIFLOZIN 10 MG TABLET PO (08:39)
[2018-11-09] MEDS: FOLIC ACID 1 MG TAB PO (08:39)
[2018-11-09] MEDS: LINAGLIPTIN 5 MG TABLET PO (08:39)
[2018-11-09] MEDS: MAGNESIUM OXIDE 400 MG TAB PO ×2 (08:39→13:21)
[2018-11-09] MEDS: FERROUS SULFATE (EC) 325 MG TAB PO (08:40)
[2018-11-09] MEDS: POTASSIUM CHLORIDE (SR) 20 MEQ TAB PO (08:41)
[2018-11-09] MEDS: SPIRONOLACTONE 50 MG TAB PO (08:45)
[2018-11-09] MEDS: FUROSEMIDE 20 MG TAB PO (08:45)
== END 2018-11-09 19:00 | disposition home or self-care (01) | DRG 433 ==
LOC: MS1 10-31 00:52 → E/R 19:17 → TEL 10-29 05:48
PROC: 0W9G3ZZ Drainage of Peritoneal Cavity, Percutaneous Approach (ICD-10-PCS; principal; 2018-10-29)
DX: K70.31 Alcoholic cirrhosis of liver with ascites (principal); E27.40 Unspecified adrenocortical insufficiency; N17.9 Acute kidney failure, unspecified; E87.1 Hypo-osmolality and hyponatremia; E87.6 Hypokalemia; E11.22 Type 2 diabetes mellitus with diabetic chronic kidney disease; I12.9 Hypertensive chronic kidney disease with stage 1 through stage 4 chronic kidney disease, or unspecified chronic kidney disease; N18.9 Chronic kidney disease, unspecified; F10.10 Alcohol abuse, uncomplicated; D63.8 Anemia in other chronic diseases classified elsewhere; E86.0 Dehydration; E11.649 Type 2 diabetes mellitus with hypoglycemia without coma; D69.6 Thrombocytopenia, unspecified; Z59.0 Homelessness; E83.42 Hypomagnesemia
CPT/HCPCS: 36415; 71045; 80048; 80053; 81001; 81003; 82043; 82533; 82962; 83036; 83690; 83735; 84100; 84155; 84300; 84443; 84484; 85025; 85610; 85730; 93005; 96365; 96366; 99285-25

== ENCOUNTER 2018-12-12 15:42 | Emergency (ER) | payer MEDICAID ==
[2018-12-12] MEDS: HYDROCODONE/APAP (10/325) TAB PO (16:27)
== END 2018-12-12 17:44 | disposition home or self-care (01) ==
LOC: FTE 15:42
DX: M25.562 Pain in left knee (principal); E11.9 Type 2 diabetes mellitus without complications; Z79.84 Long term (current) use of oral hypoglycemic drugs
CPT/HCPCS: 73562; 99283-25